=== PATIENT | male | born 1985 | race Caucasian/White ===

== ENCOUNTER 2017-12-25 10:46 | Inpatient (IN) | payer OTHER ==
[~2017-12-25] VITALS: Ht 180.3 cm; Wt 85.4 kg
--- NOTE | 2017-12-25 11:42 | ED PSYCHIATRIC COMPLAINT ---
History of Present Illness General Chief Complaint: Psychiatric Related Complaint Stated Complaint: +SI, "TOOK A BUNCH OF PILLS", ETOH Source: old records, EMS, ex Exam Limitations: unable to give history Vital Signs & Intake/Output Vital Signs & Intake/Output Vital Signs Date Time Temp Pulse Resp B/P B/P Pulse O2 O2 Flow FiO2 Mean Ox Delivery Rate 12/28 0715 96.8 68 18 122/60 97 Room Air 12/28 0200 97.6 52 18 138/90 97 Room Air 12/27 2205 98.4 55 18 128/78 97 12/27 2000 98.5 57 20 130/84 12/28 1999 98.5 57 20 130/84 97 Room Air 12/27 1600 50 16 130/80 12/27 1400 98.4 58 20 140/80 12/27 1400 98.0 59 20 160/80 98 12/27 1000 62 138/78 ED Intake and Output 12/28 0000 12/27 1200 Intake Total 1020 825 Output Total Balance 1020 825 Intake, IV 170 525 Intake, Oral 850 300 Number 2 Bowel Movements Patient 199 lb Weight Allergies Coded Allergies: NO KNOWN ALLERGIES (08/03/12) Reconcile Medications Baclofen 20 MG TABLET 1 TAB PO BID nerve apin (Reported) Buprenorphine HCl/Naloxone HCl (Suboxone 8 MG-2 MG Sl Film) 8 MG-2 MG FILM 3 STR SL DAILY MAINTENCE (Reported) Folic Acid 1 MG TABLET 1 TAB PO DAILY alcoholic Gabapentin (Neurontin) 800 MG TABLET 1 TAB PO Q6 anxiety (Reported) Lisdexamfetamine Dimesylate (Vyvanse) 60 MG CAPSULE 1 CAP PO QAM DEPRESSION ( Reported) Multiple Vitamin (Multivitamins) 1 EACH TABLET 1 TAB PO DAILY alcoholuic Omeprazole 40 MG CAPSULE.DR 1 CAP PO DAILY gerd Paroxetine HCl 30 MG TABLET 1 TAB PO DAILY DEPRESSION (Reported) Quetiapine Fumarate (Seroquel) 50 MG TABLET 1 TAB PO QPM insomnia (Reported) Thiamine HCl 100 MG TABLET 1 TAB PO DAILY alcoholic Triage Note: PT BROUGHT TO TRIAGE BY EX FOR OD ON SUBOXEN, LYRICA, UNKNOWN AMOUNT, TRIAZALAM, PT ALSO TOOK 8 SHOTS OF LIQUOR. PT WAS FOUND ON BR FLOOR AND HAD WRITTEN SORRY ON HIS LEGS Triage Nurses Notes Reviewed? yes HPI: Patient presents for evaluation of a possible overdose. Patient himself is at this point unable to provide history due to somnolence. I have obtained history from his ex- with whom he is currently staying. She states that the patient has been expressing suicide ideation recently. He was evaluated in the emergency department Saturday night. She states he has a court appearance today and could potentially face senior living time. Earlier this morning she found multiple medications of hers and his is missing. Apparently potentially taken unknown amounts of gabapentin Suboxone and benzodiazepines. Past History Travel History Traveled to [place] past 21 day No Medical History Any Pertinent Medical History? see below for history Psychiatric: anxiety, depression, SUICIDAL IDEATION ADHD Isolation History: Standard Surgical History Surgical History: non-contributory Psychosocial History Who do you live with Other (see notes) What is your primary language French Tobacco Use: Current Daily Use Daily Tobacco Use Amount/Type: => 5 Cigarettes daily ETOH Use: heavy use Illicit Drug Use: marijuana Family History Hx Contributory? No Review of Systems Review of Systems Constitutional: Reports: no symptoms. EENTM: Reports: no symptoms. Respiratory: Reports: no symptoms. Cardiovascular: Reports: no symptoms. GI: Reports: no symptoms. Genitourinary: Reports: no symptoms. Musculoskeletal: Reports: no symptoms. Skin: Reports: no symptoms. Neurological/Psychological: Reports: see HPI. Hematologic/Endocrine: Reports: no symptoms. Immunologic/Allergic: Reports: no symptoms. All Other Systems: Reviewed and Negative Physical Exam Physical Exam General Appearance: SEE BELOW Neurological/Psychiatric: SEE BELOW Comments: Gen.: Well-nourished, well-developed, no acute respiratory distress. Somnolent and difficult to arouse. Head: Normocephalic, atraumatic. Eyes: Normal inspection bilaterally Ears: Normal inspection bilaterally Nose: Normal inspection Throat/mouth : Moist mucosa Neck: Supple, full range of motion, no goiter Lungs: Quiet respirations Back: Normal range of motion Extremities: Normal range of motion grossly, no cyanosis clubbing or edema of the upper extremities Neurologic: Unable to assess Skin: warm and dry Psychiatric: Unable to assess SAD PERSONS Done? deferred to inpatient psychiatric eval Progress Differential Diagnosis: drug intoxication, drug overdose, Depression, suicidality, anxiety, bipolar disorder Plan of Care: Orders Procedure Date/time Status Regular Diet 12/27 D Active Continuous Observation Monitor 12/27 1129 Active SUB [facility] (35 MIN) 12/26 UNK Complete Current Medications Sig/Braulio Start time Last Medication Dose Stop Time Status Admin Quetiapine Fumarate 50 MG QPM 12/27 2100 CAN (SEROquel) Buprenorphine/ 1 TAB 0800 & 1300 12/27 1300 AC 12/28 Naloxone 0807 (Suboxone) Gabapentin 400 MG BID 12/27 0900 AC 12/28 (Neurontin) 0807 Sertraline HCl 100 MG DAILY 12/27 0900 AC 12/28 (Zoloft) 0807 Thiamine HCl 100 MG DAILY 12/27 0900 AC 12/28 (Vitamin B1) 0807 Omeprazole 40 MG DAILY AC 12/27 0756 AC 12/28 (Prilosec) 0600 Nicotine 21 MG DAILY 12/26 1545 AC 12/28 (Nicoderm) 0806 Folic Acid 1 MG DAILY 12/26 1342 AC 12/28 (Folic Acid) 0807 Multivitamins 1 TAB DAILY 12/26 1342 AC 12/28 (Theragran Vitamins) 0807 Enoxaparin Sodium 40 MG DAILY 12/26 0900 AC 12/28 (Lovenox) 0806 Lorazepam 0 Q1P PRN 12/25 1545 AC 12/28 (Ativan) 0936 Initial ED EKG: NSR, rate (78) Comments: 12/25/2017 12:03:16 PM after the Narcan dose, Glenn seems to be a bit more alert although not conversant yet. 12/25/2017 12:32:18 PM d/w poison control who recommends icu level care due potentially long effects of Suboxone. Otherwise the patient should be provided symptomatic and supportive care. 12/25/2017 1:13:40 PM patient's case discussed with Dr. Owens who will evaluate the patient shortly. It is not clear if the patient requires intubation for airway control or hypercarbia. 12/25/2017 1:28:18 PM I have updated patient's ex- who is at the bedside with Glenn. His pupils have increased in size likely the result of the Narcan administered. His respiratory effort remains adequate as well as his oxygen saturations. Although he does not respond to name calling as yet he is protecting his airway with a prompt gag reflex and teeth clamping. 12/25/2017 1:37:29 PM MOD notified. 12/25/2017 2:03:46 PM patient has been evaluated by Dr. Owens. Departure Departure Disposition: STILL A PATIENT Condition: Stable Clinical Impression Primary Impression: Medication overdose Referrals: Patient Has No Primary Care Dr (PCP/Family) Departure Forms: Customer Survey General Discharge Information Prescriptions: Current Visit Scripts Multiple Vitamin (Multivitamins) 1 TAB PO DAILY #30 TAB Thiamine HCl 1 TAB PO DAILY #30 TAB Folic Acid 1 TAB PO DAILY #30 TAB Omeprazole 1 CAP PO DAILY #30 CAP Admission Note Spoke With: Graciela IRAHETA,Darryl Saravia Documentation of Exam: Documentation of any treatments & extenuating circumstances including Concerns Regarding Discharge (functional status, medication knowledge or non-compliance, living conditions, etc.) that warrant an admission rather than observation: Patient presents after overdose likely secondary to Suboxone. Suboxone is a long acting narcotic agonist place this patient at high risk of respiratory depression respiratory failure and . This patient cannot be safely treated as an outpatient as he would be at very high risk of worsening clinically. Given this the patient requires hospitalization for close clinical monitoring of vital signs and continuous pulse oximetry. Hypoxia should be treated with oxygen supplementation and/or administration of Narcan to reverse the narcotic effect of the Suboxone. Patient should also have a crisis evaluation to determine any intentional intent behind the overdose and to address any psychiatric considerations. Oxygen supplementation should be weaned accordingly. I feel this patient will require a multiple day hospitalization. Critical Care Note Critical Care Note Critical Care Time: 30-74 min
[2017-12-25 12:04] LABS: ABSOLUTE BASOPHIL COUNT 0 /CUMM (0.0-0.2); ABSOLUTE EOSINOPHIL COUNT 0.3 /CUMM (0.0-0.7); ABSOLUTE GRANULOCYTE CT 1.4 /CUMM (1.4-6.5); ABSOLUTE LYMPH COUNT 2.8 /CUMM (1.2-3.4); ABSOLUTE MONOCYTE COUNT 0.3 /CUMM (0.10-0.60); BASOPHIL % 0.9 % (0.0-2.0); EOSINOPHIL % 5.4 % (0-5); GRANULOCYTE % 29.5 % (42.2-75.2); HEMATOCRIT 40.2 % (42-52); MEAN CORPUSCULAR HGB CONC 34.5 G/DL (33.0-37.0); MEAN CORPUSCULAR VOLUME 87.2 FL (80.0-94.0); MEAN PLATELET VOLUME 7.3 FL (7.4-10.4); PLATELET COUNT 229 /CUMM (130-400); RBC DISTRIBUTION WIDTH 13.7 % (11.5-14.5); RED BLOOD CELL CT 4.61 /CUMM (4.70-6.10); WHITE BLOOD CELL COUNT 4.8 /CUMM (4.8-10.8)
--- NOTE | 2017-12-25 13:50 | History & Physical ---
Damon IRAHETA,[facility] 12/25/17 1800: General Information and HPI MD Statement: I have seen and personally examined JAN MONTGOMERY and documented this H&P. The patient is a 32 year old M who presented with a patient stated chief complaint of polysibstance abuse. Exam Limitations: unable to give history History of Present Illness: 32-year-old gentleman with a history significant for prior IV drug abuse, untreated hepatitis C, alcohol abuse, is brought in to [place] ED by his after being found on the bathroom floor with multiple medications. Patient had written the words "sorry" on his legs and abdomen and reported to his ex- that he had taken "a bunch of" pills in addition to alcohol. Per ED records when patient presented he was found to be very lethargic and needed multiple staff members to transport him from wheelchair to stretcher. He was administered 0.8 mg of Narcan. When seen by the ICU team patient, he was more arousable and responded to verbal commands, but still appeared very sedated. Most of the history was obtained from his ex- was at bedside, she reports that the patient most likely took his Vyvanse, Suboxone, gabapentin, Lyrica(not prescribed for him, it is his ex- Rx). Review of system was very limited due to patient sedated state however he was able to state that he does not have any chest pain, palpitation, shortness of breath, or any generalized pain.. of note, patient had presented 3 days ago at [place] ED after being brought in by the police for an emergency examination after he was found inebriated at someone else's yard. Apparently, on that date he had texted to his ex- what appeared to be a suicide note. He was examined by psych and at that time, his risk for suicide did not meet the threshold of involuntary hospitalization. A phone call was placed to poison control by the ED physician for polysubstance overdose management recommendation. Poison control recommended symptomatic management and ICU placement for now. Regarding his social life, patient is and has 1 daughter who is 5 years old. He does live with his mom but for the past few days he has been staying with his ex-. He is facing most likely half-way time due to multiple offenses, he will schedule for court today. 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 Allergies/Medications Allergies: Coded Allergies: NO KNOWN ALLERGIES (08/03/12) Past History Travel History Traveled to [place] past 21 day No Medical History Psychiatric: anxiety, depression, SUICIDAL IDEATION ADHD Isolation History: Standard Surgical History Surgical History: non-contributory Past Family/Social History Psychosocial History ETOH Use: heavy use Illicit Drug Use: marijuana Review of Systems Review of Systems Constitutional: Reports: see HPI. Exam & Diagnostic Data Last 24 Hrs of Vital Signs/I&O Vital Signs Date Time Temp Pulse Resp B/P B/P Pulse O2 O2 Flow FiO2 Mean Ox Delivery Rate 12/25 1553 97.5 80 20 110/80 12/25 1553 97.5 80 20 110/80 95 Room Air 12/25 1419 89 18 134/63 96 Nasal 2.5L Cannula 12/25 1404 98.8 89 18 144/67 97 Nasal 2.5L Cannula 12/25 1349 92 18 147/69 98 Nasal 2.5L Cannula 12/25 1334 97.9 95 22 148/69 98 Nasal 2.5L Cannula 12/25 1309 96 20 152/69 95 Nasal 2.5L Cannula 12/25 1304 94 24 144/68 98 Nasal 2.5L Cannula 12/25 1249 91 22 145/70 98 Nasal 2.5L Cannula 12/25 1237 90 18 135/74 98 Nasal 2.5L Cannula 12/25 1128 99 Room Air Room Air 12/25 1105 97.8 86 12 130/70 96 Room Air 12/25 1055 98.0 85 20 116/70 Intake & Output 12/25 1600 12/25 0800 12/25 0000 Intake Total 1000 Output Total 600 Balance 400 Intake, IV 1000 Output, Urine 600 Patient 85.927 kg Weight Weight Bed scale Measurement Method Physical Exam General Appearance moderately sedated, lethargic Skin No Rashes, No Significant Lesion, green pen markigs in abdomen and legs stating "sorry" Skin Temp/Moisture Exam: Warm/Dry Sepsis Skin Exam (color): Normal for Ethnicity HEENT Atraumatic, Mucous Membr. moist/pink Neck Supple, No JVD Lymphatic Cervical nl Cardiovascular Regular Rate, Normal S1, Normal S2 Lungs Clear to Auscultation, Normal Air Movement Abdomen Normal Bowel Sounds, Soft Neurological Normal Speech, Strength at 5/5 X4 Ext, Sensation Intact, Cranial Nerves 3-12 NL, Reflexes 2+ Extremities No Clubbing, No Cyanosis, No Tenderness/Swelling Vascular Normal Pulses, Pulses Symmetrical Last 24 Hrs of Labs/Bala: Laboratory Tests 12/25/17 1246: pH 7.30 *L, pCO2 53 H, pO2 182 H, HCO3 25, ABG O2 Sat (Measured) 95.0 L, P-50 (Temp Corrected) N, Carboxyhemoglobin 3.1, O2 Concentration % 2.5L, Temperature 97.8, O2 Delivery Method N/C, Phlebotomy Draw Site LEFT RADIAL 12/25/17 1210: Urine Opiates Screen < 100, Methadone Screen < 40, Barbiturate Screen < 60, Ur Phencyclidine Scrn < 6.00, Amphetamines Screen 219, U Benzodiazepines Scrn 137, Urine Cocaine Screen < 50, Urine Cannabis Screen < 5.00, Urine Color YEL, Urine Clarity CLEAR, Urine pH 6.5, Ur Specific [place] <= 1.005, Urine Protein NEG, Urine Ketones NEG, Urine Nitrite NEG, Urine Bilirubin NEG, Urine Urobilinogen 0.2, Ur Leukocyte Esterase NEG, Ur Microscopic EXAM NOT REQUIRED, Urine Hemoglobin NEG, Urine Glucose NEG 12/25/17 1140: Anion Gap 15, Estimated GFR > 60, BUN/Creatinine Ratio 11.4, Glucose 113 H, Calcium 8.6, Phosphorus 2.7, Magnesium 2.0, Total Bilirubin 0.3, AST 32, ALT 43, Alkaline Phosphatase 65, Creatine Kinase 84, Troponin I < 0.01, Total Protein 6.9, Albumin 3.7, Globulin 3.2, Albumin/Globulin Ratio 1.2, CBC w Diff MAN DIFF ORDERED, RBC 4.61 L, MCV 87.2, MCH 30.0, MCHC 34.5, RDW 13.7, MPV 7.3 L, Gran % 29.5 L, Lymphocytes % 57.8 H, Monocytes % 6.4, Eosinophils % 5.4 H, Basophils % 0.9, Absolute Granulocytes 1.4, Segmented Neutrophils 28 L, Band Neutrophils 3, Absolute Lymphocytes 2.8, Lymphocytes 60 H, Monocytes 7, Absolute Monocytes 0.3, Eosinophils 1, Absolute Eosinophils 0.3, Basophils 1, Absolute Basophils 0, Platelet Estimate ADEQUATE, Salicylates < 1.0, Acetaminophen < 10.0 L, Serum Alcohol 420.0 Microbiology 07/11 1500 UPPER RESP: Surveillance Culture - RECD 12/25 1430 GI: Surveillance Culture - COLB Diagnostic Data EKG Results Normal sinus rythm Assessment/Plan Assessment: 32-year-old gentleman presenting to [place] ED after "suicidal attempt" by intentional polysubstance ingestion. Patient has multiple life stressors including a pending court hearing with hearing today with most likely half-way time. Impression * Suicidal attempt * Polysubstance intentional overdose (the exact medications and amount is unknown but based on ex- account likely included baclofen, triazolam, Vyvanse, Suboxone, gabapentin (?) and Lyrica(?). * Hypercarbia * EtOH abuse with an alcohol level of 400 on admission. * Hypokalemia * History of significant psychiatric illnesses including depression. * History of untreated hepatitis C. Plan * Admit to ICU for close monitoring including cardiac monitoring * One-to-one sitter * Symptomatic supportive management for his polysubstance drug ingestion ( Personally spoke to poison control center and they reccomended we continue our current regimen). * D5 at 75 mils per hour * Replenish potassium * IV Protonix for GI prophylaxis * CIWA monitoring * Patient does have a history of SSRI on his medication claim however this was not reported by ex- S1 of the medication he took today. Nevertheless we will monitor for any impending serotonin syndrome. Currently he does not show any clinical signs of this. * As needed symptom triggered lorazepam only * Will consider clonidine if patient shows any signs of opioid withdrawal * Psychiatric consult * CODE STATUS; full code * DVT prophylaxis;ALPS and enoxaparin As Ranked By This Provider Problem List: 1. Suicidal ideation 2. Alcohol intoxication delirium Core Measures/Misc (03/03) Acute Coronary Syndrome ACS Diagnosis: No Congestive Heart Failure Congestive Heart Failure Diagnosis No Cerebrovascular Accident CVA/TIA Diagnosis: No VTE (View Protocol) VTE Risk Factors Acute Medical Illness No Mechanical VTE Prophylaxis d/t N/A MechProphylax Ordered No VTE Pharm Prophylaxis d/t NA PharmProphylax ordered Sepsis (View protocol) Sepsis Present: No If YES complete Sepsis Event Note If YES complete Sepsis Event Note Graciela IRAHETA,[facility] 12/25/17 1426: Core Measures/Misc (03/03) Sepsis (View protocol) If YES complete Sepsis Event Note If YES complete Sepsis Event Note Attending MD Review Statement Attending Statement Attending MD Statement: examined this patient, discuss w/resident/PA/PADDING GLUER, agreed w/resident/PA/PADDING GLUER, discussed with family, reviewed EMR data (avail), discussed with nursing, discussed with case mgmt, reviewed images, amended to note Attending Assessment/Plan: Seen and examined independently in the emergency room Discussed with ex- SIGNIFICANT DATA potassium low anion gap normal LFTs unremarkable C BC showed 57 % lymphocytes prior to that it was 38% needs follow-up urine tox screen reviewed no significant This is a gentleman who presented with intentional overdose with suicide attempt. It does appear that he has had suicidal ideation recently per ex-. Patient apparently was facing half-way time as he had a court date today. He is drinking heavily recently with history of alcohol abuse, he has been taking gabapentin and Suboxone at home apparently has benzos at home as well. Tox screen noted. He does use marijuana. I'm not sure whether he uses intravenous drugs but his ex- does say that he does not use intravenous drugs. And examined him he had pinpoint pupil was less responsive pupils reacting otherwise chest decreased breath sounds he had tattoos heart S1-S2 is heard abdominal exam soft sounds were heard extremity no cyanosis clubbing patient had written 'sorry ' all over his body, moving all extremities full neurological exam could not be done IMPRESSION Intentional overdose with suicidal ideation with significant reduced mental status with mild hypercarbic state now maintaining his airway with O2 sat 91%. Patient still obtunded and lethargic however but opens eyes with mild painful stimulation Significant alcohol intoxication Polysubstance overdose probably benzo, gabapentin and Suboxone Significant depression or history Hypokalemia RECOMMENDATION Admitted to ICU Keep the head of bed elevated Maintenance IV fluids with D5 half-normal saline at 60 mL Mccallum catheter Watch for alcohol withdrawal As needed benzos if he needs it Intubation if he has any issues with his airway so far he seems to be maintaining his airway with a gag reflex and a bite reflex when I tried to evaluate his posterior pharynx Lovenox subcutaneous IV PPI One-to-one sitter Psychiatry evaluation and is more awake We will follow closely in the ICU Patient critically ill Junior Oconnor MD 12/25/17 7318: General Information and HPI Allergies/Medications Home Med list Baclofen 10 MG TABLET 1 TAB PO TID MUSLCE (Reported) Buprenorphine HCl/Naloxone HCl (Suboxone 8 MG-2 MG Sl Film) 8 MG-2 MG FILM 3 STR SL DAILY MAINTENCE (Reported) Gabapentin 400 MG CAPSULE 1 CAP PO TID MENTAL HEALTH (Reported) Lisdexamfetamine Dimesylate (Vyvanse) 60 MG CAPSULE 1 CAP PO QAM DEPRESSION ( Reported) Paroxetine HCl 30 MG TABLET 1 TAB PO DAILY DEPRESSION (Reported) Core Measures/Misc (03/03) Sepsis (View protocol) If YES complete Sepsis Event Note If YES complete Sepsis Event Note If YES complete Sepsis Event Note If YES complete Sepsis Event Note
[2017-12-25] MEDS ORDERED: SUBOXONE 8 MG-1 EACH SL (14:53)
[2017-12-25] MEDS ORDERED: VYVANSE60 M1 PO (14:53)
[2017-12-25] MEDS ORDERED: PAROXETINE HCL30 M1 PO (14:54)
[2017-12-25 15:53] VITALS: BP 110/80
[2017-12-25 20:00] VITALS: BP 120/70
[2017-12-25 22:00] VITALS: BP 110/88
[2017-12-26] VITALS (8 sets, daily range): BP systolic 119–149; BP diastolic 60–86
--- NOTE | 2017-12-26 08:34 | PN- Resident CRCU ---
Nithin Arteaga 12/26/17 0831: Subjective HPI/CRCU Issues: Mr. Garcia is a 32 y/o M that was brought to the ED by his ex- after finding him on the bathroom with multiple pills at his side. He was admitted to the ICU for close monitoring of possible multiple substance overdose. 24 Hour Events: Pt seen and examined at bedside. He is with a 1:1 sitter -- patient is oriented to place and self, not to time. He has no recollection of what transpired that brought him to the ED. Last thing he recalls is drinking a lot of alcohol "some days ago" with the intention of suicide, but can't remember more than "bits and pieces" of the rest. He states he "took a bunch of pills" but doesn't recall exactly what. He does mention there were benzos and suboxone on the shelf where he took them from. He was talkative and cooperative during questioning with no acute complaints. Objective Vital Signs & I&O Last 8 Hrs of Vitals and I&O: Intake & Output 12/26 1600 12/26 0800 12/26 0000 Intake Total 8412 780 6835 Output Total 650 1000 Balance 600 850 360 Intake, IV 550 600 Intake, Oral 1250 300 760 Output, Urine 650 1000 Laboratory Tests 12/25 2335 Chemistry Sodium (137 - 145 mmol/L) 145 Potassium (3.5 - 5.1 mmol/L) 4.0 Chloride (98 - 107 mmol/L) 108 H Carbon Dioxide (22 - 30 mmol/L) 25 Anion Gap (5 - 16) 12 BUN (9 - 20 mg/dL) 6 L Creatinine (0.7 - 1.2 mg/dL) 0.7 Estimated GFR (>60 ml/min) > 60 BUN/Creatinine Ratio (7 - 25 %) 8.6 Vital Signs Date Time Temp Pulse Resp B/P B/P Pulse O2 O2 Flow FiO2 Mean Ox Delivery Rate 12/26 1534 98.3 46 20 122/60 99 Room Air 12/26 1200 60 149/70 12/26 0800 Room Air 12/26 0800 98.0 56 16 138/86 12/26 0800 98.0 56 16 138/86 98 Room Air 12/26 0600 68 18 134/81 12/26 0400 98.7 84 18 140/80 12/26 0400 96 Room Air 12/26 0200 81 20 120/82 12/26 0000 99.0 76 16 119/65 12/26 0000 99.0 76 16 119/65 96 Room Air 12/26 0000 96 Room Air 12/25 2200 98.1 80 10 110/88 12/26 1999 98.1 80 20 120/70 Intake & Output 12/26 1600 Intake Total 1250 Output Total 650 Balance 600 Intake, Oral 1250 Output, Urine 650 Exam General Appearance: no apparent distress, alert, awake Head: atraumatic, normal appearance Neck: normal inspection, supple Respiratory: normal breath sounds, chest non-tender, no respiratory distress, lungs clear Cardiovascular: bradycardia Gastrointestinal: normal bowel sounds, soft, non-tender, no organomegaly Extremities: normal inspection, normal capillary refill Cranial Nerves: normal hearing, normal speech Skin: words "sorry" written on LE Current Medications: Current Medications Sig/Braulio Start time Last Medication Dose Route Stop Time Status Admin Buprenorphine/ 1 TAB Q6 PRN 12/26 1115 AC 12/26 Naloxone SL 1206 Dextrose/Sodium 1,000 ML Q13H 12/25 1545 12/26 Chloride IV 0358 Enoxaparin Sodium 40 MG DAILY 12/26 0900 AC 12/26 SC 0841 Folic Acid 1 MG DAILY 12/26 1342 AC 12/26 PO 1521 Lorazepam 0 Q1P PRN 12/25 1545 IV Multivitamins 1 TAB DAILY 12/26 1342 AC 12/26 PO 1521 Nicotine 21 MG DAILY 12/26 1545 AC 12/26 TOP 1646 Pantoprazole Sodium 40 MG DAILY 12/25 1815 AC 12/26 IV 0841 Thiamine HCl 100 MG DAILY 12/27 0900 PO Thiamine HCl 100 MG ONCE ONE 12/26 1345 MI 12/26 Sodium Chloride 50 ML IV 12/26 1444 1447 Trimethobenzamide HCl 200 MG ONCE ONE 12/26 0745 DC 12/26 IM 12/26 0746 0833 Impression/Plan Impression/Problem List Impression: Impression Polysubstance intentional overdose EtOH abuse Hypokalemia, resolved Hep C, untreated VS: T: 98.3 // RR: 20, 99% Sat 99% on Room air // HR: 60 // BP:122/60 Plan Respiratory Pt breathing comfortably on room air, sat 99%. No lung findings on physical examination - no other evidence of acute respiratory pathology. Infection Pt afebrile with Slightly low WBC. Pt has a history of IVDU but hasn't done any IV drugs for about two years as per patient. He has a history of hepatitis C, with unclear timeline on diagnosis; no treatment or followup since diagnosis. Cardiac Pt with episodes of asymptomatic bradycardia. Possibly related to ingestion of baclofen. No other cardiac findings indicative of acute pathology. He has a slightly increased QTC, medications that prolong QT interval should be avoided. -avoid qt prolonging drugs -monitor HR Metabolic Blood gas on admit was indicative of a respiratory acidosis and CO2 retention consistent with his lethargic state after overdose. Alimentary Pt is tolerating PO well. Neurological Pt was talkative, oriented to self and place but not to time. Recall memory intact, though has no recolection of past 3 days. Sensation and muscle strength is preserved. Pt shows some embarassement about the suicide attempt, and did not want to talk especifically about what happened. Pt on suboxone to prevent worsening of withdrawal. -Sitter 1:1 -Psych consulted -Suboxone 2mg q6 PRN -Lorazepam PRN -monitor CIWA CODE STATUS; full code DVT prophylaxis;ALPS and enoxaparin Problem List: 1. Suicidal ideation Pain Ratin Tomorrow's Labs & Rationales: . Plan DVT/Prophylaxis: mechanical, pharmacological Graciela IRAHETA,[facility] 12/26/17 0943: Attending MD Review Statement Attending Sign Off Attending Cosign Statement: I have: examined this patient, reviewed [facility] EMR data, personally reviewd images, discussd w/resident/PA/MANAGER LVN, discussed mgmt plan w/caleb, discussed mgmt plan w/CM, discussed mgmt plan w/pt, agreed w/resident/PA/MANAGER LVN, amended to note. Other Findings: Doing ok Lj episode noted EKG no heart block Mild qtc prolongation Mag is ok Plan Cont monitoring psych eval Ciwa Watch for withdrawal Ok to tele
--- NOTE | 2017-12-26 09:29 | Cons- Psychiatry ---
Psychiatric Consult Date of Consult: 12/25/17 (Dr Owens) Reason for Consult: Evaluate for intentionality of overdose, ?Suicide attempt History of Present Illness: 32-year-old white male with history of depression, anxiety, opiate use disorder on Suboxone with upcoming court hearing for assault on medical personnel at [facility]. Patient was found unresponsive yesterday morning by ex- on the day of his court hearing with empty pill bottles around him. Ex- called EMS, Narcan was given, patient became somewhat responsive but still somnolent. On arrival to ED patient had blood alcohol level of 0.400. Patient had the word "SORRY" written on his legs and abdomen in thick black marker. Patient has a past history of 15 detoxes or rehabs, no previous psych admissions, but patient was in [facility] ED on 12/22/2017 for texting a suicidal message of "goodbye," and "I can't do this anymore" while he was intoxicated on alcohol. Patient accidentally sent this to his [id number] when he meant to send to his father. [id number] and ex- became concerned and brought patient to the ED. Patient was evaluated by crisis social worker school and psychiatrist. Patient, family and psychiatry staff felt the patient was safe to return home once he sobered, with outpatient follow-up plan. Today however patient stated that he had an intentional ingestion of an unknown amount of pills that day that he did not disclose to family or treaters as a suicide attempt. Patient states that he was concerned that on court sentencing yesterday he would be sent to custodial or snf for an extended period of time which was the acute stressor prior to suicide attempt. Patient was reported to have taken an unknown amount of Suboxone, Lyrica, triazolam, gabapentin and liquor. Patient does not remember any of these events. Today, patient feels that this was "stupid" and that he is glad to be alive. Patient reports that he has "many many stresses building up." Patient reports that he is in effect homeless and only temporarily staying with his ex-, Lakisha, with whom he has a child (5-year-old girl in ex- custody). Patient reports that he's been sleeping erratically (2-10 hours a night), with increased guilt over his legal situation, energy level "up and down," with no change in appetite. Patient reports that he's been distractible sometimes starting a lot of projects and unable to finish them and quite talkative. Patient reports history of ADHD. Patient denies past pato, physical or sexual abuse, psychosis, PTSD. Patient stated that all meds taken were prescribed (although some were his ex-'s pills), denies use of illicit's in the past month. States he does not use marijuana or synthetic cannabinoids. Patient reports that he started using opiates when he had a broken leg at age 17, starting with Percocets, moving to OxyContin and then to heroin when he was 21 years old (snorting and IV). Patient states he started Suboxone 3 years ago and has not used heroin since then. Patient reports occasional benzo use, and has been prescribed that in the past. Patient reports he is currently taking Vyvanse 50 mg every morning for concentration, Suboxone 16 mg in the morning and 8 mg in the afternoon sublingual for methadone maintenance, gabapentin 800 mg 4 times a day for anxiety and nerve pain, baclofen 20 mg twice a day for nerve pain/spasm, Seroquel 50 mg at bedtime when necessary insomnia (states he takes this about once a week). Patient has taken Elavil in the past for leg pain but this was discontinued due to incarceration. Allergies: Coded Allergies: NO KNOWN ALLERGIES (08/03/12) Current Medications: Current Medications Sig/Braulio Start time Last Medication Dose Route Stop Time Status Admin Buprenorphine/ 1 TAB Q6 PRN 12/26 1115 AC 12/26 Naloxone SL 1206 Dextrose/Sodium 1,000 ML Q13H 12/25 1545 AC 12/26 Chloride IV 0358 Enoxaparin Sodium 40 MG DAILY 12/26 0900 AC 12/26 SC 0841 Folic Acid 1 MG DAILY 12/26 1342 AC 12/26 PO 1521 Lorazepam 0 Q1P PRN 12/25 1545 AC IV Multivitamins 1 TAB DAILY 12/26 1342 AC 12/26 PO 1521 Nicotine 21 MG DAILY 12/26 1545 AC TOP Pantoprazole Sodium 40 MG DAILY 12/25 1815 AC 12/26 IV 0841 Thiamine HCl 100 MG DAILY 12/27 0900 AC PO Thiamine HCl 100 MG ONCE ONE 12/26 1345 DC 12/26 Sodium Chloride 50 ML IV 12/26 1444 1447 Trimethobenzamide HCl 200 MG ONCE ONE 12/26 0745 DC 12/26 IM 12/26 0746 0818 Past History Past Medical History Neurological: sciatica EENT: NONE Cardiovascular: NONE Respiratory: NONE Gastrointestinal: NONE Hepatic: hepatitis C Renal: NONE Musculoskeletal: fracture (left lower leg, 17 yo), multiple lipomas Psychiatric: alcohol dependence, anxiety, depression, opioid dependence, SUICIDAL IDEATION ADHD ETOH, intentional overdose Endocrine: NONE Blood Disorders: NONE Cancer(s): NONE PMO BUSINESS ANALYST/Reproductive: NONE Past Surgical History Surgical History: left leg fracture Psychosocial History Strengths/Capabilities: supportive relationship with ex- and her family, connected to treatment Physical Limitations (Interventions): n/a Psychiatric Treatment History Psych Treatment Psychiatric Treatment Yes Outpatient Treatment Yes (Lisa King, therapist) Location of Treatment [place] Reason for Treatment Anger mgmt Dates of Treatment 2017 Diagnosis: Major Depressive disorder Intentional overdose Opiate Use disorder, on suboxone maintenance Alchohol Use disorder, severe Anxiety Disorder ADHD Risk Factors: access to lethal means, high anxiety/distress, history of suicide atmpts, SA/MH hospitalized, substance abuse, poor impulse control, male, limited support, poor treatment alliance, between treaters Substance Use/Abuse History Drug Use/Abuse Substances Used/Abused Yes Substance Used/Abused Alcohol First Use teens Last Used day of admission (12/25/2017) How much used/taken 10-20 shots per day How often daily For how long severe x 2 months Route of use oral Substance Abuse Treatment Substance Abuse Treatment Past Substance Abuse [place] Yes Inpatient Treatment No Outpatient Treatment Yes Location of Treatment [place] [facility] Reason for Treatment opiate use disorder [facility] [phone] Dates of Treatment last 3 years, current Response to Treatment continued suboxone use, avoiding other opiates per pt report Assessment/Plan Lab Results: Laboratory Tests 12/25/17 2335: Anion Gap 12, Estimated GFR > 60, BUN/Creatinine Ratio 8.6 12/25/17 1246: pH 7.30 *L, pCO2 53 H, pO2 182 H, HCO3 25, ABG O2 Sat (Measured) 95.0 L, P-50 (Temp Corrected) N, Carboxyhemoglobin 3.1, O2 Concentration % 2.5L, Temperature 97.8, O2 Delivery Method N/C, Phlebotomy Draw Site LEFT RADIAL 12/25/17 1210: Urine Opiates Screen < 100, Methadone Screen < 40, Barbiturate Screen < 60, Ur Phencyclidine Scrn < 6.00, Amphetamines Screen 219, U Benzodiazepines Scrn 137, Urine Cocaine Screen < 50, Urine Cannabis Screen < 5.00, Urine Color YEL, Urine Clarity CLEAR, Urine pH 6.5, Ur Specific Dutton <= 1.005, Urine Protein NEG, Urine Ketones NEG, Urine Nitrite NEG, Urine Bilirubin NEG, Urine Urobilinogen 0.2, Ur Leukocyte Esterase NEG, Ur Microscopic EXAM NOT REQUIRED, Urine Hemoglobin NEG, Urine Glucose NEG 12/25/17 1140: Anion Gap 15, Estimated GFR > 60, BUN/Creatinine Ratio 11.4, Glucose 113 H, Calcium 8.6, Phosphorus 2.7, Magnesium 2.0, Total Bilirubin 0.3, AST 32, ALT 43, Alkaline Phosphatase 65, Creatine Kinase 84, Troponin I < 0.01, Total Protein 6.9, Albumin 3.7, Globulin 3.2, Albumin/Globulin Ratio 1.2, CBC w Diff MAN DIFF ORDERED, RBC 4.61 L, MCV 87.2, MCH 30.0, MCHC 34.5, RDW 13.7, MPV 7.3 L, Gran % 29.5 L, Lymphocytes % 57.8 H, Monocytes % 6.4, Eosinophils % 5.4 H, Basophils % 0.9, Absolute Granulocytes 1.4, Segmented Neutrophils 28 L, Band Neutrophils 3, Absolute Lymphocytes 2.8, Lymphocytes 60 H, Monocytes 7, Absolute Monocytes 0.3, Eosinophils 1, Absolute Eosinophils 0.3, Basophils 1, Absolute Basophils 0, Platelet Estimate ADEQUATE, Hepatitis A IgM Ab NONREACTIVE , Hep Bs Antigen NONREACTIVE, Hep B Core IgM Ab Conf NONREACTIVE, Hepatitis C Antibody REACTIVE H, Salicylates < 1.0, Acetaminophen < 10.0 L, Serum Alcohol 420.0 Diffential Diagnosis: Major depressive disorder with intentional overdose, accidental overdose, other neuro etiology (head trauma, vascular) Impression: 32-year-old white male with history of depression, anxiety, opiate use disorder on Suboxone with upcoming court hearing for assault on medical personnel at [facility] presenting to ED after being found unresponsive by ex- surrounded by pill bottles on the day of his court hearing. Patient currently in ICU with improved cognition and mild opiate withdrawal, pending transfer to telemetry floor. Patient had heart rate excursion into the 40s briefly, likely due to vasovagal event. Patient's self-injurious behavior, substance use and stressors have been escalating and patient is at high risk of self-harm in the community and warrants inpatient psychiatric admission. Patient currently regrets the overdose and has no reported memory of the event, and currently denies SI/HI/AVH, but is in agreement with inpatient admission for maintenance of safety, psychiatric stabilization, pharmacologic management to include management of withdrawal, and aftercare planning. 1. Depression with intentional overdose -PEC written and placed in patient's chart, will require psychiatric admission once medically clear -continue 1:1 safety monitor, cannot leave AMA -Continue sertraline 100 mg at this time -restart gabapentin 400 mg bid on 12/27/2017 and uptitrate to home dose of 800 mg qid as tolerated, if pt stabilized -may restart seroquel 50 mg qhs insomia as tolerated, hold if QTc >475ms -Would restart medications cautiously and monitor lytes/transaminases 2. Alcohol withdrawal -CIWA/vital signs every 4 hours -Ativan 2 mg q4h for CIWA > 8, SBP >160, DBP > 100, HR >100, hold for sedation -start folate 100 mg daily, MVI daily, thiamine 100 mg IM now then 100 mg daily -encourage oral hydration -monitor and replete Mg as needed 3. Opiate use disorder on suboxone -[facility] [place] [phone] -would titrate suboxone to withdrawal sxs via COWS, suboxone 2 mg q6prn withdrawal, up to home dose of 16 mg am and 8 mg in afternoon. -please do not start suboxone until withdrawal sxs clearly present or withdrawal will be precipitated -zofran, loperamide, ibuprofen as needed for breakthough sxs -would cautiously restart baclofen 10 mg bid for leg pain as tolerated -SW please contact [facility] (Dr Tatum) for dc planning when needed 4. ADHD -would hold vyvance 60 mg qam at this time and restart only once fully medically cleared 5. Court Charges -pt has charges for assault of a medical personnel from [facility], please use caution -SW please contact [place] [facility] to advise of admission Please contact Psychiatry Consult Liaison (weekdays) or on-call Psychiatrist ( evenings/weekends) with questions.
[2017-12-27] VITALS (7 sets, daily range): BP systolic 128–160; BP diastolic 78–84
--- NOTE | 2017-12-27 07:00 | PN- Housestaff ---
Jose Melton 12/27/17 0659: Subjective Follow-up For: Bradycardia Polysubstance Abuse SI Subjective: Patient seen and examined at bedside this morning. Denied any new complaints. Would like to shower. Rates at 40s but patient denies chest pain, palpitations or shortness of breath. Will continue to monitor and have cardiology asses prior to CPS admission. Review of Systems Constitutional: Denies: see HPI. Objective Last 24 Hrs of Vital Signs/I&O Vital Signs Date Time Temp Pulse Resp B/P B/P Pulse O2 O2 Flow FiO2 Mean Ox Delivery Rate 12/27 1400 98.0 59 20 160/80 98 12/27 0800 97.7 60 16 140/80 12/27 0613 98.2 44 16 140/80 99 Room Air 12/27 0400 40 12/26 2201 98.3 48 15 136/70 98 12/26 1534 98.3 46 20 122/60 99 Room Air Intake & Output 12/27 1600 12/27 0800 12/27 0000 Intake Total 825 200 Output Total Balance 825 200 Intake, IV 525 Intake, Oral 300 200 Patient 201 lb Weight Physical Exam General Appearance: Alert, Oriented X3, Cooperative, No Acute Distress HEENT: Atraumatic, PERRLA, EOMI, Mucous Membr. moist/pink Neck: Supple, No JVD Cardiovascular: Regular Rate, Normal S1, Normal S2, No Murmurs Lungs: Clear to Auscultation, Normal Air Movement Abdomen: Normal Bowel Sounds, Soft, No Tenderness, No Hepatospenomegaly Neurological: Normal Speech, Strength at 5/5 X4 Ext, Normal Tone, Sensation Intact, Cranial Nerves 3-12 NL, Reflexes 2+ Extremities: No Clubbing, No Cyanosis, No Edema, Normal Pulses Vascular: Normal Pulses, Pulses Symmetrical Current Medications: Current Medications Sig/Braulio Start time Last Medication Dose Route Stop Time Status Admin Buprenorphine/ 1 TAB 0800 12/27 1600 AC Naloxone SL 12/27 1601 Buprenorphine/ 1 TAB 0800 & 1300 12/27 1300 AC 12/27 Naloxone SL 1129 Buprenorphine/ 1 TAB Q6 PRN 12/26 1115 DC 12/26 Naloxone SL 1206 Dextrose/Sodium 1,000 ML Q13H 12/25 1545 DC 12/27 Chloride IV 0619 Enoxaparin Sodium 40 MG DAILY 12/26 0900 AC 12/27 SC 0959 Folic Acid 1 MG DAILY 12/26 1342 AC 12/27 PO 0958 Gabapentin 400 MG BID 12/27 0900 AC 12/27 PO 0958 Lorazepam 1 MG ONE ONE 12/27 1500 DC PO 12/27 1501 Lorazepam 0 Q1P PRN 12/25 1545 AC IV Multivitamins 1 TAB DAILY 12/26 1342 AC 12/27 PO 0958 Nicotine 21 MG DAILY 12/26 1545 AC 12/27 TOP 0959 Omeprazole 40 MG DAILY AC 12/27 0756 AC 12/27 PO 0959 Pantoprazole Sodium 40 MG DAILY 12/25 1815 DC 12/26 IV 0841 Patient Medication 1 ED ONE ONE 12/27 1330 DC Teaching ED 12/27 1331 Quetiapine Fumarate 50 MG QPM 12/27 2100 CAN PO Sertraline HCl 100 MG DAILY 12/27 0900 AC 12/27 PO 0958 Thiamine HCl 100 MG DAILY 12/27 0900 AC 12/27 PO 0958 Assessment/Plan Assessment: A/P: Patient is a 32 year old male brought to the ED by his ex- after finding him on the bathroom with multiple pills at his bedside. Patient was originally admitted to the ICU for close monitoring of possible substance overdose. ( Alcohol, lyrica, suboxone). PMH includes anxiety, depression, suicidal ideation, IV drug abuse, untreated hepatitis C, alcohol abuse. Patient has episodes of asymptomatic bradyucardia possibly related to ingestion of baclofen. Will be seen by Dr. Monroe for asymptomatic bradycardia. Problem List: 1. Polysubstance Abuse 2. Asymptomatic Bradycardia 3. Suicidal Ideations PLAN: * ETOH level of 420; continue to monitor CIWA and [place] per CIWA * Continue sitter and plan discussed with psychiatry Dr. Mathew; will be admitted to inpatient psychiatry following cardiology consultation for asymptomatic bradyacardia rates in 40s * Patient cannot sign out AMA * Suboxone 8mg resumed; will continue home dose tomorrow if tolerating Code Status: Full Code DVT PPx: ALPS + Lovenox 40mg SC Diet: Regular Problem List: 1. Suicidal ideation 2. Alcohol intoxication delirium Pain Ratin Pain Location: Lower back Pain Goal: Pain 4 or less Pain Plan: As per pain pathway Tomorrow's Labs & Rationales: N/A DVT/Prophylaxis: pharmacological [place] 12/27/17 1247: Attending MD Review Statement Attending Statement Attending MD Statement: examined this patient, discuss w/resident/PA/MIRROR FABRICATION SUPERVISOR, agreed w/resident/PA/MIRROR FABRICATION SUPERVISOR, reviewed EMR data (avail), discussed with nursing, discussed with case mgmt Attending Assessment/Plan: etoh intoxication- pt was drinking rum and his etoh level was 420. cont to monitor on ciwa and ativan per ciwa. Suicidal attempt with drug overdose- cont the sitter and plan d/w psych. pt will be admitted to inpatient psych. Pt cannot sign out AMA Opiate abuse on suboxone. started back on 8mg bid suboxone, if tolerating will increase to home dose tomorrow. d/w pt the care plan.
--- NOTE | 2017-12-27 09:16 | Incdntl Nt Psy ---
Incidental Note Notation: Addendum to psychiatry reccs from 12/27/2017: Pt has developed bradycardia. Please hold baclofen and seroquel until HR normalizes, monitor ECG, lytes and bivalents and replete as needed. It is unclear the quantity and extent of his ingestion and may be delveloping a delayed reaction to overdose. Consider cardiology consult if warranted.
--- NOTE | 2017-12-27 11:09 | PN- Psychiatry ---
Assessment/Plan Impression: Impression: 32-year-old white male with history of depression, anxiety, opiate use disorder on Suboxone with upcoming court hearing for assault on medical personnel at [facility] presenting to ED after being found unresponsive by ex- surrounded by pill bottles on the day of his court hearing. Patient has been transferred to medical floor from ICU, appears more coherent today, fully oriented, but does appear to be in mild opiate and alcohol withdrawal. Patient on PEC due to potential lethality of overdose attempt, however in agreement with inpatient admission when medically cleared. Patient does feel as though alcohol withdrawal is just starting and has history of complicated withdrawal to include hallucinosis. Bradycardia appears to be resolved. Suggestion: -Continue one-to-one safety monitor, on PEC, cannot leave AMA, vs q4h -Change Suboxone to 8 mg at 6 AM and 1 PM, may titrate to 16 mg a.m. and 8 mg in afternoon (home dose) if breakthrough opiate withdrawal symptoms persist -zofran, loperamide, ibuprofen as needed for breakthough opiate withdrawal sxs -Ativan 2 mg q4h for CIWA > 8, SBP >160, DBP > 100, HR >100, hold for sedation -Continue sertraline, gabapentin, Seroquel (hold if QTc >475ms) -Monitor lytes, bivalents, transaminases, EKG -continue to hold adderall and baclofen -SW please contact [place] [facility] for collateral/dispo planning - please contact [place] and [employer] [place] courts (missed court dates in both town 12/25/2016) -Patient has been in behavioral control this admission, however be advised the patient has court charges for assault on medical personnel at outside hospital -please contact [facility]PS for psychiatric admission once medically cleared and bed available. Subjective Subjective: Patient interviewed in hospital room with safety monitor and sitter at bedside. Patient states he is feeling that Suboxone has completely worn off and is reporting symptoms of abdominal cramps, nausea, sweaty palms, tremor, restlessness overnight and mild numbness in hands and feet. Patient reports that alcohol withdrawal typically starts on day 4 for him. States typical withdrawal includes tremor, sweats, parathesia and "seeing spots" which may also include auditory hallucinations of voices. Last DTs was one week ago which included AVH. Patient states he has mild, fleeting SI today, denies HI/AVH/SIB. Patient advised he was placed on PEC, however states he is in agreement with inpatient admission once he is medically cleared and advised this may be as late as Saturday if he is doing well. Sumaya raised concern that the patient's regional medical director would like a release for his medical records to present to court. Patient advised to discuss legal release with tent worker. Patient denies any other concerns at this time. Treatment team discussed with fiction and nonfiction prose writer plan for withdrawal management. Team requested changing Suboxone to standing per hospital protocol. Stated bradycardia had resolved. Team aware patient is on PEC and may not leave AMA. Objective Last 24 Hrs of Vital Signs/I&O Vital Signs Date Time Temp Pulse Resp B/P B/P Pulse O2 O2 Flow FiO2 Mean Ox Delivery Rate 12/27 612 98.2 44 16 140/80 99 Room Air 12/27 0400 40 12/26 2201 98.3 48 15 136/70 98 12/26 1534 98.3 46 20 122/60 99 Room Air 12/26 1200 60 149/70 Intake & Output 12/27 1600 12/27 0800 12/27 0000 Intake Total 825 200 Output Total Balance 825 200 Intake, IV 525 Intake, Oral 300 200 Patient 201 lb Weight Current Medications Sig/Braulio Start time Last Medication Dose Route Stop Time Status Admin Buprenorphine/ 1 TAB 0800 & 1300 12/27 1300 AC Naloxone SL Buprenorphine/ 1 TAB Q6 PRN 12/26 1115 DC 12/26 Naloxone SL 1206 Dextrose/Sodium 1,000 ML Q13H 12/25 1545 DC 12/27 Chloride IV 0619 Enoxaparin Sodium 40 MG DAILY 12/26 0900 AC 12/27 SC 0959 Folic Acid 1 MG DAILY 12/26 1342 AC 12/27 PO 0958 Gabapentin 400 MG BID 12/27 0900 AC 12/27 PO 0958 Lorazepam 0 Q1P PRN 12/25 1545 AC IV Multivitamins 1 TAB DAILY 12/26 1342 AC 12/27 PO 0958 Nicotine 21 MG DAILY 12/26 1545 AC 12/27 TOP 0959 Omeprazole 40 MG DAILY AC 12/27 0756 AC 12/27 PO 0959 Pantoprazole Sodium 40 MG DAILY 12/25 1815 DC 12/26 IV 0841 Quetiapine Fumarate 50 MG QPM 12/27 2100 AC PO Sertraline HCl 100 MG DAILY 12/27 0900 AC 12/27 PO 0958 Thiamine HCl 100 MG DAILY 12/27 899 AC 12/27 PO 58 Thiamine HCl 100 MG ONCE ONE 12/26 1345 DC 12/26 Sodium Chloride 50 ML IV 12/26 1706 1447 GENERAL: Alert and oriented x3, good eye contact, in hospital bed with ex-fianc mildly diaphoretic, mild distress SPEECH: Moderate rate and volume, normal prosody, fluent MOTOR: Mild bilateral hand tremor, no stereotypy or other abnormal movements MOOD: "Doing alright " AFFECT: Appeared to be in mild withdrawal, generally calm and cooperative, mood congruent, mildly constricted range, non-labile, fairly well related THOUGHT PROCESS: Logical, linear and goal-directed THOUGHT CONTENT: Fleeting passive SI, denies HI/AVH/SIB, no apparent grandiosity, paranoia, delusions, obsessions, ruminations, but concerned about upcoming court hearings COGNITION: No apparent deficit in attention, memory or concentration JUDGMENT: Fair INSIGHT: Fair MOTOR: Mild bilateral hand tremor, no stereotypy or other abnormal movements MOOD: "Doing alright " AFFECT: Appeared to be in mild withdrawal, generally calm and cooperative, mood congruent, mildly constricted range, non-labile, fairly well related THOUGHT PROCESS: Logical, linear and goal-directed THOUGHT CONTENT: Fleeting passive SI, denies HI/AVH/SIB, no apparent grandiosity, paranoia, delusions, obsessions, ruminations, but concerned about upcoming court hearings COGNITION: No apparent deficit in attention, memory or concentration JUDGMENT: Fair INSIGHT: Fair
--- NOTE | 2017-12-27 12:15 | Discharge Summary ---
See Addendum Visit Information Visit Dates Admission Date: 12/25/17 Discharge Date: 12/31/2017 Hospital Course Course Attending Physician: Reinier IRAHETA,Lulu Sarvaia Primary Care Physician: Patient Has No Primary Care Dr Hospital Course: This is a 32-year-old gentleman with past medical history significant for anxiety, depression, suicidal ideation, IV drug abuse, untreated hepatitis C, alcohol abuse, opiate abuse on Suboxone was brought to the emergency room by his after being found on the bathroom floor from intentional polysubstance overdose with suicide attempt. He does appear that he has had suicidal ideation recently but ex-. A phone call was placed to poison control by the ED physician for polysubstance overdose management recommendation. Poison control recommended symptomatic management and ICU placement. Patient has been drinking heavily recently with history of alcohol abuse, has been taking gabapentin and Suboxone at home. He does use marijuana. she reports that the patient most likely took his Vyvanse, Suboxone, gabapentin, Lyrica(not prescribed for him, it is his ex- Rx). 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 Apparently, on that date he had texted to his ex- what appeared to be a suicide note. He was examined by psych and at that time, his risk for suicide did not meet the threshold of involuntary hospitalization. He was admitted to ICU after a suicide attempt by intentional polysubstance ingestion. Patient has multiple life stressors including a pending court hearing with most likely shelter time. ------ Vitals were within normal limits CBCs and BEP normal limits Impression * Suicidal attempt * Polysubstance intentional overdose (the exact medications and amount is unknown but based on ex- account likely included baclofen, triazolam, Vyvanse, Suboxone, gabapentin (?) and Lyrica(?). * Hypercarbia * EtOH abuse with an alcohol level of 400 on admission. * Hypokalemia * History of significant psychiatric illnesses including depression. * History of untreated hepatitis C. Suicide attempt Patient was admitted to ICU after suicide attempt by intentional polysubstance overdose most likely baclofen, Suboxone, gabapentin, Lyrica. Vitals were monitored closely every hour. Mental status was improved. He has one-to-one sitter. Symptomatic supportive management was provided after contacting poison control. He was given adequate amount of hydration. Electrolytes were repleted and received IV Protonix for GI prophylaxis. He was able to maintain his airways. Ethyl alcohol abuse with alcohol level 400 on admission Monitored on CIWA, maintained on IV Ativan as needed based on his course. Received multivitamin thiamine and folate. Hypokalemia Electrolytes were repleted and monitored closely given polysubstance abuse Depression Patient has history of depression with intentional overdose. He was seen by psychiatrist, recommended inpatient psychiatric admission once he is medically cleared. He has continuous one-to-one safety monitor. He cannot leave AMA, PEC was placed in the patient chart. * He usually takes sertraline 100 mg daily for depression which was continued. Anxiety He takes gabapentin 800 mg - 4 times daily at home. Patient was started on gabapentin 400 twice daily. Insomnia Usually takes Seroquel 50 mg at bedtime for insomnia, however it was held given bradycardia Nerve pain Patient takes baclofen 20 twice daily. However it was held given bradycardia and intentional overdose Opiate use disorder on Suboxone Medication was conformed. He takes Suboxone 16 mg in the a.m. and 8 mg in the afternoon. We restarted Suboxone after couple of days with starting dose 8 mg twice daily. He was given supportive management for breakthrough symptoms. ADHD-held his home dose Vyvanse 60 mg, restart only once fully cleared Full code DVT prophylaxis Lovenox subcu Regular diet Allergies: Coded Allergies: NO KNOWN ALLERGIES (08/03/12) Disposition Summary Disposition Principal Diagnosis: Polysubstance abuse Suicide attempt Alcohol abuse Hypokalemia Additional Diagnosis: Depression Attention deficit disorder Opiate dependence Anxiety Discharge Disposition: other general hospital Discharge Instructions General Discharge Information Code Status: Full Code Patient's Diet: As tolerated Patient's Activity: As tolerated Follow-Up Instructions/Appts: Follow-up with PCP in 1 week after discharge Follow-up with welder gun in 1 week after discharge Follow-up with psychiatrist in 1 week after discharge Medications at Discharge Discharge Medications: Stop taking the following medications: Gabapentin (Gabapentin) 400 MG CAPSULE ORAL THREE TIMES DAILY Qty = 240 Baclofen (Baclofen) 10 MG TABLET ORAL THREE TIMES DAILY Qty = 28 Continue taking these medications: Buprenorphine HCl/Naloxone HCl (Suboxone 8 MG-2 MG Sl Film) 8 MG-2 MG FILM 3 Strip SUBLINGUAL DAILY Qty = 21 Comments: Last Taken: 12/31/17 Time: 3:30 PM Lisdexamfetamine Dimesylate (Vyvanse) 60 MG CAPSULE 1 Capsule ORAL Every Morning Qty = 14 Comments: NOT GIVEN Paroxetine HCl (Paroxetine HCl) 30 MG TABLET 1 Tablet ORAL DAILY Qty = 30 Comments: NOT GIVEN Gabapentin (Neurontin) 800 MG TABLET 1 Tablet ORAL EVERY SIX HOURS Comments: Last Taken: 12/31/17 Time: 9:00 AM Quetiapine Fumarate (Seroquel) 50 MG TABLET 1 Tablet ORAL Every night Comments: NOT GIVEN Baclofen (Baclofen) 20 MG TABLET 1 Tablet ORAL TWICE DAILY Comments: NOT GIVEN Start taking the following new medications: Multiple Vitamin (Multivitamins) 1 EACH TABLET 1 Tablet ORAL DAILY Qty = 30 No Refills Comments: Last Taken: 12/31/17 Time: 9:00 AM Thiamine HCl (Thiamine HCl) 100 MG TABLET 1 Tablet ORAL DAILY Qty = 30 No Refills Comments: Last Taken: 12/31/17 Time: 9:00 AM Folic Acid (Folic Acid) 1 MG TABLET 1 Tablet ORAL DAILY Qty = 30 No Refills Comments: Last Taken: 12/31/17 Time: 9:00 AM Omeprazole (Omeprazole) 40 MG CAPSULE.DR 1 Capsule ORAL DAILY Qty = 30 No Refills Comments: Last Taken: 12/31/17 Time: 6:00 AM Lorazepam (Ativan) 2 MG TABLET 1 Tablet ORAL See Instructions Qty = 10 No Refills Instructions: 2mg q6 today, taper based on ciwa scores Comments: Last Taken: 12/31/17 Time: 12:30 PM Copies To: Con IRAHETA,Con Attending Review Statement Documenting Attending: Lulu Hills MD Other Findings: [place]
[2017-12-27] MEDS ORDERED: NEURONTIN800 M2 PO (12:16)
[2017-12-27] MEDS ORDERED: SEROQUEL50 M1 PO (12:17)
[2017-12-27] MEDS ORDERED: BACLOFEN20 M1 PO (12:18)
[2017-12-27] MEDS ORDERED: FOLIC ACID1 M1 PO (12:21)
[2017-12-27] MEDS ORDERED: OMEPRAZOLE40 M1 PO (12:21)
[2017-12-27] MEDS ORDERED: THIAMINE HCL100 M1 PO (12:21)
[2017-12-27] MEDS ORDERED: MULTIVITAMINS1 EAC9 PO (12:21)
--- NOTE | 2017-12-27 12:23 | Patient Discharge Instructions ---
Discharge Instructions General Discharge Information You were seen/treated for: Suicidal attempt Polysubstance intentional overdose (the exact medications and amount is unknown but based on ex- account likely included baclofen, triazolam, Vyvanse, Suboxone, gabapentin (?) and Lyrica(?). Hypercarbia EtOH abuse with an alcohol level of 400 on admission. Hypokalemia History of significant psychiatric illnesses including depression. Special Instructions: Follow-up PCP in 1 week after discharge Follow-up piercing artist in 1 week after discharge Follow-up with psychiatrist in 1 week after discharge pt was again instructed to get evaluated for his HCV and start treatment once he is discharged from [facility]. Acute Coronary Syndrome Inclusion Criteria At DC or during hospital stay patient has or had the following: ACS DIAGNOSIS No Discharge Core Measures Meds if any: Prescribed or Continued at Discharge Meds if any: NOT Prescribed or Continued at Discharge Congestive Heart Failure Inclusion Criteria At DC or during hospital stay patient has or had the following: CHF DIAGNOSIS No Discharge Core Measures Meds if any: Prescribed or Continued at Discharge Meds if any: NOT Prescribed or Continued at Discharge Cerebrovascular accident Inclusion Criteria At DC or during hospital stay patient has or had the following: CVA/TIA Diagnosis No Discharge Core Measures Meds if any: Prescribed or Continued at Discharge Meds if any: NOT Prescribed or Continued at Discharge Venous thromboembolism Inclusion Criteria VTE Diagnosis No VTE Type NONE VTE Confirmed by (Test) NONE Discharge Core Measures - Per Current guidelines, there needs to be overlap - treatment for the first 5 days of Warfarin therapy. - If discharged on Warfarin prior to 5 days of - overlap therapy, the patient will need to be - assessed for post discharge needs including - *Post discharge parental anticoagulation - *Warfarin and/or parental anticoagulation education - *Follow up date to check INR post discharge At least 5 days overlap therapy as Inpatient No Meds if any: Prescribed or Continued at Discharge Note: Overlap Therapy is Warfarin and Anticoagulant Meds if any: NOT Prescribed or Continued at Discharge
--- NOTE | 2017-12-27 16:23 | Cons- Cardiology ---
General Information and HPI Consulting Request Date of Consult: 12/27/17 Requested By: Lulu Hills MD Reason for Consult: Bradycardia. Source of Information: patient, old records Exam Limitations: poor historian History of Present Illness: Mr. Glenn Garcia is a 32-year-old male with a history of untreated hepatitis C, alcohol abuse, prior IV drug abuse, and suicidal ideation who presented to the ED on 12/25/2017 with suicidal ideation and polysubstance overdose including, but not limited to, Vyvanse, Suboxone, Lyrica, Neurontin, Gablofen, and ethanol who we are asked to evaluate and help manage in regard to bradycardia. According to nursing, his heart rate went as low as 36 bpm overnight while asleep and has been in the 50s-60s bpm range today while he was awake. Allergies/Medications Allergies: Coded Allergies: NO KNOWN ALLERGIES (08/03/12) Home Med List: Baclofen 20 MG TABLET 1 TAB PO BID nerve apin (Reported) Buprenorphine HCl/Naloxone HCl (Suboxone 8 MG-2 MG Sl Film) 8 MG-2 MG FILM 3 STR SL DAILY MAINTENCE (Reported) Folic Acid 1 MG TABLET 1 TAB PO DAILY alcoholic Gabapentin (Neurontin) 800 MG TABLET 1 TAB PO Q6 anxiety (Reported) Lisdexamfetamine Dimesylate (Vyvanse) 60 MG CAPSULE 1 CAP PO QAM DEPRESSION ( Reported) Multiple Vitamin (Multivitamins) 1 EACH TABLET 1 TAB PO DAILY alcoholuic Omeprazole 40 MG CAPSULE.DR 1 CAP PO DAILY gerd Paroxetine HCl 30 MG TABLET 1 TAB PO DAILY DEPRESSION (Reported) Quetiapine Fumarate (Seroquel) 50 MG TABLET 1 TAB PO QPM insomnia (Reported) Thiamine HCl 100 MG TABLET 1 TAB PO DAILY alcoholic Review of Systems Review of Systems: A 14 point system review was obtained and was noncontributory, other than as above. Past History Travel History Traveled to [place] past 21 day No Medical History Blood Transfusion Hx: No Neurological: sciatica EENT: NONE Cardiovascular: NONE Respiratory: NONE Gastrointestinal: NONE Hepatic: hepatitis C Renal: NONE Musculoskeletal: fracture (left lower leg, 17 yo), multiple lipomas Psychiatric: alcohol dependence, anxiety, depression, opioid dependence, SUICIDAL IDEATION ADHD ETOH intentional overdose Endocrine: NONE Blood Disorders: NONE Cancer(s): NONE MECHANICAL SERVICE SPECIALIST/Reproductive: NONE Surgical History Surgical History: left leg fracture Psychosocial History Where Do You Live? Home Smoking Status: Current Some Day Smoker ETOH Use: heavy use Illicit Drug Use: marijuana Assessment/Plan Assessment/Plan 32-y-o-w-m w/ hx untreated hepatitis C, ethanol abuse, prior IV drug abuse, & suicidal ideation who presented to the ED on 12/25/2017 w/ suicidal ideation & polysubstance OD including, but not limited to, the INSULATION WORKER INTERIOR SURFACE stimulating agent Vyvanse (lisdexamfetamine), the opioid Suboxone (buprenorphine), the SPENCER analog /anticonvulsant Lyrica (pregabalin), another SPENCER analog/anticonvulsant Neurontin (gabapentin), the skeletal muscle relaxant Gablofen (baclofen) & ethanol who we are asked to evaluate and help manage in regard to bradycardia. Of the above listed medications, the Neurontin (gabapentin), which he is still on, and Gablofen (baclofen) have been reported to cause bradycardia. Of the other medications he is presently on, the SSRI Zoloft (sertraline), benzodiazepine Ativan (lorazepam), and PPI Prilosec (omeprazole) have all been reported to cause bradycardia in <1% of individuals on these agents. Additionally, it was mentioned in the resident's H&P that if signs of opioid withdrawal were observed they would consider the use of the alpha-2 adrenergic agonist Catapres (clonidine), but would avoid this as this too can cause bradycardia in less than or equal to 4% of individuals on this agent. The heart rates that were reported by nursing (HR 50s-60s bpm range) do not require any intervention at this time. If symptomatic bradycardia is observed would review his medications and eliminate those that can be replaced with other agents that can treat the same issues and do not have the potential for bradycardia. Consult Acknowledgment - Thank you for your consult request.
[2017-12-28 02:00] VITALS: BP 138/90
[2017-12-28 07:15] VITALS: BP 122/60
--- NOTE | 2017-12-28 09:04 | PN- Housestaff ---
Patricia Goldman 12/28/17 0904: Subjective Follow-up For: Bradycardia, polysubstance abuse, suicidal ideation. Complaints: no complaints Tele-Events Since Last Visit: Sinus bradycardia. Heart rate 44-53. Subjective: No complaints/no acute event overnight Review of Systems Constitutional: Reports: see HPI. Objective Last 24 Hrs of Vital Signs/I&O Vital Signs Date Time Temp Pulse Resp B/P B/P Pulse O2 O2 Flow FiO2 Mean Ox Delivery Rate 12/28 2245 97.8 52 18 146/90 98 Room Air 12/28 2000 72 160/110 12/28 1832 98.3 64 17 130/66 98 12/28 1428 98.3 55 18 130/84 97 Room Air 12/28 0715 96.8 68 18 122/60 97 Room Air 12/28 0200 97.6 52 18 138/90 97 Room Air Intake & Output 12/28 1600 12/28 0800 12/28 0000 Intake Total 10 120 Output Total Balance 10 120 Intake, IV 20 Intake, Oral 10 100 Patient 199 lb Weight Physical Exam General Appearance: Alert, Oriented X3, Cooperative, No Acute Distress Skin Temp/Moisture Exam: Cool/Dry HEENT: Atraumatic Cardiovascular: Regular Rate, Normal S1, Normal S2, No Murmurs Lungs: Clear to Auscultation, Normal Air Movement Abdomen: Normal Bowel Sounds, Soft, No Tenderness Neurological: Normal Speech, Strength at 5/5 X4 Ext, Normal Tone Extremities: No Clubbing, No Cyanosis, No Edema, Normal Pulses Vascular: Normal Pulses, Pulses Symmetrical Assessment/Plan Assessment: A/P: Patient is a 32 year old male brought to the ED by his ex- after finding him on the bathroom with multiple pills at his bedside. Patient was originally admitted to the ICU for close monitoring of possible substance overdose. ( Alcohol, lyrica, suboxone). PMH includes anxiety, depression, suicidal ideation, IV drug abuse, untreated hepatitis C, alcohol abuse. Patient has episodes of asymptomatic bradyucardia possibly related to ingestion of baclofen. Problem List: 1. Polysubstance Abuse 2. Asymptomatic Bradycardia 3. Suicidal Ideations PLAN: * Patient cannot sign out AMA * Pt awating bed availability at [facility] * Increase suboxone to home dose of 16mg in am and 8mg in afternoon starting tomorrow. * cont to monitor ciwa and ativan per ciwa. * will switch ativan to po tomorrow am. * Code Status: Full Code * DVT PPx: ALPS + Lovenox 40mg SC * Diet: Regular Problem List: 1. Suicidal ideation 2. Alcohol intoxication delirium 3. Medication overdose Pain Ratin Pain Location: none Pain Goal: Pain 4 or less Pain Plan: follow pain pathway Tomorrow's Labs & Rationales: not needed Lulu Hills 12/28/17 1659: Attending MD Review Statement Attending Statement Attending MD Statement: examined this patient, discuss w/resident/PA/GUEST SERVICES OFFICER, agreed w/resident/PA/GUEST SERVICES OFFICER, discussed with family, reviewed EMR data (avail), discussed with nursing, discussed with case mgmt Attending Assessment/Plan: Pt awating bed availability at [facility] . Increase suboxone to home dose of 16mg in am and 8mg in afternoon starting tomorrow. d/w pt the care plan. cont to monitor ciwa and ativan per ciwa. will switch ativan to po tomorrow am.
[2017-12-28 14:28] VITALS: BP 130/84
--- NOTE | 2017-12-28 14:45 | PN- Cardiology ---
Objective Vital Signs and I&Os Vital Signs Date Time Temp Pulse Resp B/P B/P Pulse O2 O2 Flow FiO2 Mean Ox Delivery Rate 12/28 1428 98.3 55 18 130/84 97 Room Air 12/28 0715 96.8 68 18 122/60 97 Room Air 12/28 0200 97.6 52 18 138/90 97 Room Air 12/27 2205 98.4 55 18 128/78 97 12/28 1999 98.5 57 20 130/84 12/28 1999 98.5 57 20 130/84 97 Room Air 12/27 1600 50 16 130/80 Intake & Output 12/28 1600 12/28 0800 12/28 0000 12/27 1600 12/27 0800 12/27 0000 Intake Total 10 120 900 825 200 Output Total Balance 10 120 900 825 200 Intake, IV 20 150 525 Intake, Oral 10 100 750 300 200 Number 2 Bowel Movements Patient 199 lb 201 lb Weight Current Medications: Current Medications Sig/Braulio Start time Last Medication Dose Route Stop Time Status Admin Buprenorphine/ 1 TAB 0800 12/27 1600 DC 12/27 Naloxone SL 12/27 1601 1547 Buprenorphine/ 1 TAB 0800 & 1300 12/27 1300 AC 12/28 Naloxone SL 1220 Enoxaparin Sodium 40 MG DAILY 12/26 0900 AC 12/28 SC 0806 Folic Acid 1 MG DAILY 12/26 1342 AC 12/28 PO 0807 Gabapentin 400 MG BID 12/27 0900 AC 12/28 PO 0807 Lorazepam 1 MG ONE ONE 12/27 1500 DC 12/27 PO 12/27 1501 1546 Lorazepam 0 Q1P PRN 12/25 1545 AC 12/28 IV 1410 Multivitamins 1 TAB DAILY 12/26 1342 AC 12/28 PO 0807 Nicotine 21 MG DAILY 12/26 1545 AC 12/28 TOP 0806 Omeprazole 40 MG DAILY AC 12/27 0756 AC 12/28 PO 0600 Sertraline HCl 100 MG DAILY 12/27 0900 AC 12/28 PO 0807 Thiamine HCl 100 MG DAILY 12/27 0900 AC 12/28 PO 0807 Assessment/Plan Assessment/Plan Assessment: 1. Asymptomatic sinus bradycardia 2. History of hepatitis C 3. History of polysubstance abuse 4. Suicidal ideation Recommendations: -
[2017-12-28 18:32] VITALS: BP 130/66
[2017-12-28 20:00] VITALS: BP 160/110
[2017-12-28 22:45] VITALS: BP 146/90
[2017-12-29] VITALS (8 sets, daily range): BP systolic 118–160; BP diastolic 76–102
--- NOTE | 2017-12-29 08:26 | PN- Housestaff ---
Jose Melton 12/29/17 0826: Subjective Follow-up For: Bradycardioa Polysubstance Abuse Suicidal Ideation Tele-Events Since Last Visit: SB, 49, 0.08, 0.14 Subjective: Patient seen and examined at bedside this morning. He has a complaint of nausea. Patient vomited X 2 today. Was given Tigan with significant improvement. Vomiting included nonbilious, nonbloody clear vomit. Patient states he is eating and drinking well. He denies any chest pain, tightness, palpitations or shortness of breath. 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 Review of Systems Constitutional: Denies: see HPI. Objective Last 24 Hrs of Vital Signs/I&O Vital Signs Date Time Temp Pulse Resp B/P B/P Pulse O2 O2 Flow FiO2 Mean Ox Delivery Rate 12/29 0743 98.3 52 18 118/76 98 Room Air 12/29 0600 52 118/76 12/28 2245 97.8 52 18 146/90 98 Room Air 12/28 2000 72 160/110 12/28 1832 98.3 64 17 130/66 98 Intake & Output 12/29 1600 12/29 0800 12/29 0000 Intake Total 220 220 Output Total Balance 220 220 Intake, Oral 220 220 Patient 188 lb Weight Weight Bed scale Measurement Method Physical Exam General Appearance: Alert, Oriented X3, Cooperative HEENT: Atraumatic, PERRLA, EOMI, Mucous Membr. moist/pink Neck: Supple, No JVD, No thryomegaly Cardiovascular: Normal S1, Normal S2, bradycardia Lungs: Clear to Auscultation, Normal Air Movement Abdomen: Normal Bowel Sounds, Soft, No Tenderness Neurological: Normal Gait, Normal Speech, Strength at 5/5 X4 Ext, Normal Tone, Sensation Intact, Reflexes 2+ Extremities: No Clubbing, No Cyanosis, No Edema Vascular: Normal Pulses, Pulses Symmetrical Current Medications: Current Medications Sig/Braulio Start time Last Medication Dose Route Stop Time Status Admin Buprenorphine/ 1 TAB 0800 & 1300 12/27 1300 AC 12/29 Naloxone SL 1307 Enoxaparin Sodium 40 MG DAILY 12/26 0900 AC 12/29 SC 0907 Folic Acid 1 MG DAILY 12/26 1342 AC 12/29 PO 0908 Gabapentin 400 MG BID 12/27 0900 AC 12/29 PO 0909 Lorazepam 0 Q1P PRN 07/11 1545 AC 12/29 IV 1310 Multivitamins 1 TAB DAILY 12/26 1342 AC 12/29 PO 0908 Nicotine 21 MG DAILY 12/26 1545 AC 12/29 TOP 0906 Omeprazole 40 MG DAILY AC 12/27 0756 AC 12/29 PO 0715 Sertraline HCl 100 MG DAILY 12/27 0900 AC 12/29 PO 0908 Thiamine HCl 100 MG DAILY 12/27 0900 AC 12/29 PO 0908 Trimethobenzamide HCl 200 MG ONCE ONE 12/29 1315 DC 12/29 IM 12/29 1316 1315 Orders CIWA Score (last 24 hrs): 10 Assessment/Plan Assessment: A/P: Patient is a 32 year old male brought to the ED by his ex- after finding him on the bathroom with multiple pills at his bedside. Patient was originally admitted to the ICU for close monitoring of possible substance overdose. ( Alcohol, lyrica, suboxone). PMH includes anxiety, depression, suicidal ideation, IV drug abuse, untreated hepatitis C, alcohol abuse. Patient has episodes of asymptomatic bradyucardia possibly related to ingestion of baclofen. Problem List: 1. Polysubstance Abuse 2. Asymptomatic Bradycardia 3. Suicidal Ideations PLAN: * Patient cannot sign out AMA * Awaiting bed availability at [facility] * No longer on telemtery monitoring as per cardiology; seen by Dr. Brian * Continue to monitor CI[facility] and [facility] as [facility] CIWA * Continue patients home medications and home dose of suboxone * Monitor intake; nausea and 2 episodes of vomiting today; given Tigan X1 and resolved; avoid Zofran for now given previous prolonged QTc * Patient to follow up outpatient for positive Hep C serology Code Status: Full Code DVT PPx: Lovenox 40mg SC Diet: Regular Problem List: 1. Medication overdose 2. Alcohol intoxication delirium 3. Suicidal ideation Pain Ratin Pain Location: Patient denied any signfiicant pain today Pain Goal: Remain pain free Pain Plan: As per pain pathway Tomorrow's Labs & Rationales: N/A DVT/Prophylaxis: pharmacological Lulu Hills 12/29/17 1642: Attending MD Review Statement Attending Statement Attending MD Statement: examined this patient, discuss w/resident/PA/BEHAVIOR INTERVENTIONIST, agreed w/resident/PA/BEHAVIOR INTERVENTIONIST, reviewed EMR data (avail), discussed with nursing, discussed with case mgmt Attending Assessment/Plan: Hep c ab positive- dw/ pt the findings. Pt says he knows about HCV postivity for years and few years back when he was incarcerated he spoke with the doctor there about treatment but once he got out never followed up with any doctor about it. will need to setup pt with a pcp and also with GI clinic for HCV treatment options.
--- NOTE | 2017-12-29 15:07 | PN- Cardiology ---
Subjective Subjective: The patient appears to be doing well today. No significant bradycardia noted on gambling monitor. Remains in sinus rhythm with adequate heart rate Objective Vital Signs and I&Os Vital Signs Date Time Temp Pulse Resp B/P B/P Pulse O2 O2 Flow FiO2 Mean Ox Delivery Rate 12/29 0743 98.3 52 18 118/76 98 Room Air 12/29 0600 52 118/76 12/28 2245 97.8 52 18 146/90 98 Room Air 12/28 2000 72 160/110 12/28 1832 98.3 64 17 130/66 98 Intake & Output 12/29 1600 12/29 0812/29 0000 12/28 1600 12/28 0800 12/28 0000 Intake Total 220 220 10 120 Output Total Balance 220 220 10 120 Intake, IV 20 Intake, Oral 220 220 10 100 Patient 188 lb 199 lb Weight Weight Bed scale Measurement Method Current Medications: Current Medications Sig/Braulio Start time Last Medication Dose Route Stop Time Status Admin Buprenorphine/ 1 TAB 0800 & 1300 12/27 1300 AC 12/29 Naloxone SL 1307 Enoxaparin Sodium 40 MG DAILY 12/26 0900 AC 12/29 SC 0907 Folic Acid 1 MG DAILY 12/26 1342 AC 12/29 PO 0908 Gabapentin 400 MG BID 12/27 09 AC 12/29 PO 0909 Lorazepam 0 Q1P PRN 12/25 1545 AC 12/29 IV 1310 Multivitamins 1 TAB DAILY 12/26 1342 AC 12/29 PO 0908 Nicotine 21 MG DAILY 12/26 1545 AC 12/29 TOP 0906 Omeprazole 40 MG DAILY AC 12/27 0756 AC 12/29 PO 0715 Sertraline HCl 100 MG DAILY 12/27 0900 AC 12/29 PO 0908 Thiamine HCl 100 MG DAILY 12/27 0900 AC 12/29 PO 0908 Trimethobenzamide HCl 200 MG ONCE ONE 12/29 1315 DC 12/29 IM 12/29 1316 1315 Assessment/Plan Assessment/Plan Assessment: 1. Asymptomatic sinus bradycardia 2. History of hepatitis C 3. History of polysubstance abuse 4. Suicidal ideation Recommendations: -At the moment, the patient has not had any evidence of any significant arrhythmias. He remains in sinus rhythm with a heart rate ranging from 55-80. -At the present time I believe the patient is stable to come off of the gambling monitor. -Otherwise continue as per the medical team Continue telemetry? No
[2017-12-30] VITALS (15 sets, daily range): BP systolic 106–176; BP diastolic 60–110
--- NOTE | 2017-12-30 07:01 | PN- Housestaff ---
Jose Melton 12/30/17 0701: Subjective Follow-up For: Polysubstance Abuse Suicidal Ideation Ethanol Withdrawal Tele-Events Since Last Visit: Off Tele Subjective: Patient seen and examined at bedside this morning. Has had episodes of nonbilious, nonbloody vomiting since yesterday. Increasing patients suboxone dose to home dose. Denies any acute symptoms today. Review of Systems Constitutional: Denies: see HPI. Objective Last 24 Hrs of Vital Signs/I&O Vital Signs Date Time Temp Pulse Resp B/P B/P Pulse O2 O2 Flow FiO2 Mean Ox Delivery Rate 12/30 0644 98.1 74 16 158/90 12/30 0608 98.2 101 20 158/90 98 Room Air 12/30 0430 98.2 64 18 158/80 12/30 0308 97.9 67 18 112/60 12/30 0222 97.9 64 22 106/76 12/30 0159 97.9 57 22 106/76 98 Room Air 12/29 2326 98.2 96 20 160/102 98 Room Air 12/29 2240 98.2 64 16 138/84 12/29 2133 98.2 106 18 160/102 12/29 2030 98.5 86 18 148/90 12/29 1800 98.1 89 20 140/80 98 Room Air 12/29 1506 97.9 78 18 152/90 97 Intake & Output 12/30 1600 12/30 0800 12/30 0000 Intake Total 400 280 Output Total Balance 400 280 Intake, Oral 400 280 Physical Exam General Appearance: Alert, Oriented X3, Cooperative HEENT: PERRLA, EOMI, Mucous Membr. moist/pink Cardiovascular: Normal S1, Normal S2, bradycardia Lungs: Clear to Auscultation, Normal Air Movement Abdomen: Normal Bowel Sounds, Soft, No Tenderness Neurological: Normal Speech, Strength at 5/5 X4 Ext Extremities: No Clubbing, No Cyanosis, No Edema Vascular: Normal Pulses, Pulses Symmetrical Current Medications: Current Medications Sig/Braulio Start time Last Medication Dose Route Stop Time Status Admin Buprenorphine/ 2 TAB 8AM 12/31 0800 AC Naloxone SL Buprenorphine/ 1 TAB 1500 12/30 1500 AC Naloxone SL Buprenorphine/ 2 TAB ONCE ONE 12/30 1115 DC 12/30 Naloxone SL 12/30 1116 1106 Buprenorphine/ 1 TAB 0800 & 1300 12/27 1300 DC 07/16 Naloxone SL 1035 Enoxaparin Sodium 40 MG DAILY 12/26 0900 AC 12/30 SC 1015 Folic Acid 1 MG DAILY 12/26 1342 AC 12/30 PO 1014 Gabapentin 400 MG BID 12/27 0900 AC 12/30 PO 1015 Lorazepam 1.5 MG Q6 12/30 1200 AC 12/30 PO 1124 Lorazepam 0 Q1P PRN 12/25 1545 DC 12/30 IV 1350 Multivitamins 1 TAB DAILY 12/26 1342 AC 12/30 PO 1015 Nicotine 21 MG DAILY 12/26 1545 AC 12/30 TOP 1015 Omeprazole 40 MG DAILY AC 12/27 0756 AC 12/30 PO 0657 Sertraline HCl 100 MG DAILY 12/27 0900 AC 12/30 PO 1015 Thiamine HCl 100 MG DAILY 12/27 0900 AC 12/30 PO 1015 Orders CIWA Score (last 24 hrs): 8, 8, 10 Assessment/Plan Assessment: Patient is a 32 year old male brought to the ED by his ex- after finding him on the bathroom with multiple pills at his bedside. Patient was originally admitted to the ICU for close monitoring of possible substance overdose. ( Alcohol, lyrica, suboxone). PMH includes anxiety, depression, suicidal ideation, IV drug abuse, untreated hepatitis C, alcohol abuse. Patient has episodes of asymptomatic bradyucardia possibly related to ingestion of baclofen. Problem List: 1. Polysubstance Abuse 2. Asymptomatic Bradycardia 3. Suicidal Ideations PLAN: * Patient cannot sign out AMA * Awaiting bed availability at [facility] * No longer on telemtery monitoring as per cardiology; seen by Dr. Brian * Continue to monitor CIWA and [place] as per CIWA; was high today; started on PO ativan * Continue patients home medications and home dose of suboxone * Monitor intake; nausea and 2 episodes of vomiting today; given Tigan X1 and resolved; avoid Zofran for now given previous prolonged QTc * Patient to follow up outpatient for positive Hep C serology Code Status: Full Code DVT PPx: Lovenox 40mg SC Diet: Regular Problem List: 1. Alcohol intoxication delirium 2. Medication overdose 3. Suicidal ideation Pain Ratin Pain Location: Denies pain today Pain Goal: Remain pain free Pain Plan: As per pain pathway Tomorrow's Labs & Rationales: none needed DVT/Prophylaxis: mechanical, pharmacological [place] 07/16/18 1358: Attending MD Review Statement Attending Statement Attending MD Statement: examined this patient, discuss w/resident/PA/COFFEE PLANTATION WORKER, agreed w/resident/PA/COFFEE PLANTATION WORKER, reviewed EMR data (avail), discussed with nursing, discussed with case mgmt Attending Assessment/Plan: etoh withdrawl- ciwa was high to day. Pt started on po ativan scheduled and plan is to transfer him to [facility] today if he is doing ok . WIll avoid giving iv ativan. increased the dose of suboxone to his home dose. d/w pscyhiatry the care plan
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
[2017-12-31 07:03] VITALS: BP 134/90
[2017-12-31 08:00] VITALS: BP 142/82
[2017-12-31 10:00] VITALS: BP 132/82
[2017-12-31] MEDS ORDERED: ATIVAN2 MG PO (10:26)
[2017-12-31 12:00] VITALS: BP 130/82
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
[2017-12-31 14:00] VITALS: BP 140/82
[2017-12-31 14:22] VITALS: BP 130/80
[2017-12-31] MEDS ORDERED: BACLOFEN10 M1 PO (16:44)
[2017-12-31] MEDS ORDERED: GABAPENTIN400 M2 PO (16:45)
== END 2017-12-31 16:10 | disposition other institution (70) | DRG 817 ==
LOC: ERH 10:46 → CRI 13:14 → ERHI 13:14 → ENRESERV 14:16 → ENTRNSPT 14:22 → EDTRNSPTSTS 14:28 → CMPTRNSPT 14:58 → CRI 15:09 → ENTRNSPT 12-26 13:41 → EDTRNSPTSTS 12-26 13:45 → 1NO 12-26 14:03 → CMPTRNSPT 12-26 14:06 → 1NO 12-27 08:32
PROVIDERS: Physician Assistant
DX: T40.2X2A Poisoning by other opioids, intentional self-harm, initial encounter (principal); Y92.002 Bathroom of unspecified non-institutional (private) residence as the place of occurrence of the external cause; R45.851 Suicidal ideations; B18.2 Chronic viral hepatitis C; Y90.8 Blood alcohol level of 240 mg/100 ml or more; Z91.5 Personal history of self-harm; T42.6X2A Poisoning by other antiepileptic and sedative-hypnotic drugs, intentional self-harm, initial encounter; T42.4X2A Poisoning by benzodiazepines, intentional self-harm, initial encounter; E87.6 Hypokalemia; F41.9 Anxiety disorder, unspecified; F90.9 Attention-deficit hyperactivity disorder, unspecified type; R06.89 Other abnormalities of breathing; F12.90 Cannabis use, unspecified, uncomplicated; R00.1 Bradycardia, unspecified; F17.210 Nicotine dependence, cigarettes, uncomplicated; Z59.0 Homelessness; F10.231 Alcohol dependence with withdrawal delirium; Z65.3 Problems related to other legal circumstances; T42.8X2A Poisoning by antiparkinsonism drugs and other central muscle-tone depressants, intentional self-harm, initial encounter; F32.2 Major depressive disorder, single episode, severe without psychotic features
CPT/HCPCS: 1NP; CCU; 80307; 81003; 82436; 93005; 93010; 96361; 96374; 99291; G0480; J1650; J2310; J2405; J3250; J3490; J7042

== ENCOUNTER 2017-12-31 12:20 | Inpatient (IN) | payer OTHER ==
[~2017-12-31] VITALS: Ht 180.3 cm; Wt 88.6 kg
[~2017-12-31 12:20] MED LIST: ATIVAN2 MG PO; BACLOFEN20 M1 PO; FOLIC ACID1 M1 PO; MULTIVITAMINS1 EAC9 PO; NEURONTIN800 M2 PO; OMEPRAZOLE40 M1 PO; PAROXETINE HCL30 M1 PO; SEROQUEL50 M1 PO; SUBOXONE 8 MG-1 EACH SL; THIAMINE HCL100 M1 PO; VYVANSE60 M1 PO
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
[2017-12-31 16:15] VITALS: BP 154/94
[2017-12-31 16:43] VITALS: BP 154/94
[2017-12-31] MEDS ORDERED: BACLOFEN10 M1 PO (16:44)
[2017-12-31] MEDS ORDERED: GABAPENTIN400 M2 PO (16:45)
[2017-12-31 16:47] VITALS: BP 154/94
[2017-12-31 19:44] VITALS: BP 174/91
[2017-12-31 20:40] VITALS: BP 174/91
[2018-01-01 07:35] VITALS: BP 149/85
[2018-01-01 07:55] VITALS: BP 149/85
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
[2018-01-01 12:14] VITALS: BP 151/95
--- NOTE | 2018-01-01 14:19 | PN- Att Addend ---
Attending Addendum Attending Brief Note Patient seen and examined, c/o back pain and sciatica. Patient was transferred from [facility] to [facility]. he was originally admitted to [facility] due to Polysubstance overdose. Vital Signs Date Time Temp Pulse Resp B/P B/P Pulse O2 O2 Flow FiO2 Mean Ox Delivery Rate 01/01 1214 96 151/95 01/01 0755 98.1 95 149/85 01/01 0735 98.1 95 149/85 12/31 2040 97.8 88 174/91 12/31 1944 97.8 88 174/91 12/31 1647 97.9 92 154/94 12/31 1643 97.9 92 154/94 12/31 1615 97.9 92 154/94 On exam; aox3, nad. cv; s1,s2, rrr resp; Clear abd; soft, nt, bs+ ext; no edema. no labs. A/P: 32 y/o M with pmh sig for anxiety, depression, suicidal ideation, IV drug abuse, untreated hepatitis C, alcohol abuse, opiate abuse on Suboxone admitted with intentional Polysubstance overdose. Now transfered to [facility] for further Mx. patient has been resumed on Subxone, gabapentin, baclofen. Pt asking about his Vyvanse. Resuming Vyvanse will be upto the psychiatrist. Pt also on Lorazepam for ETOH use. BP is high, Likely secondary to Withdrawl and pain. Will monitor for now. If continue to remain high then will start antihypertensive.
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
[2018-01-01 16:27] VITALS: BP 138/81
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
[2018-01-01 20:01] VITALS: BP 172/90
[2018-01-01 22:40] VITALS: BP 118/58
[2018-01-02 08:28] VITALS: BP 149/89
[2018-01-02 12:46] VITALS: BP 124/78
--- NOTE | 2018-01-02 15:13 | CP SOUTH PROGRESS NOTE PSYCH ---
Psych (Inpt) Progress Note Progress Note Vital Signs Date Time Temp Pulse B/P O2 01/02 1246 92 124/78 01/02 0828 97.1 94 149/89 01/01 2240 59 118/58 01/01 2001 97.9 92 172/90 Mental Status: Pt. is calm and cooperative, normal psychomotor activity, no abnormal behaviors, normal speech, bright affect, he reported feeling less depressed, denied thoughts of suicide, denied thoughts of homicide or violence, he denied hallucinations Denied feeling paranoid, there were no delusions during the interview, as coherent, there was no thought disorder. Alert and oriented to time, place, and person. No difficulties with information processing, No significant or cross deficits in short-term memory during the interview. Assessment: 32-year-old Single white male who was admitted following suspected intentional overdose after he was found unresponsive. Patient has extensive substance abuse history. The patient is also facing an incarceration. He seems to be doing very well, bright affect/animated Diagnosis(es): Unspecified depressive disorder Alcohol use disorder Opioid use disorder Other specified personality disorder Hepatitis C Treatment Plan: increase gabapentin at bedtime to 1200 mg at bedtime Increase daytime gabapentin to 900 mg AM and early afternoon Continue Zoloft 50 mg daily Continue folic acid and thiamine a nicotine patch Continue Suboxone Continue nicotine patch Continue gabapentin Continue nicotine patch
[2018-01-02 15:52] VITALS: BP 144/85
--- NOTE | 2018-01-02 16:02 | SOCIAL WORKER PROG NOTE PSYCH ---
Social Work Progress Note Progress Note Attempted to call Janna Trujillo's ex- to schedule a family meeting, but the number was not going through. Ronnie gave me a different number later and said the other numbers I was calling were old. The new number is [phone]. Ronnie was in groups today. Said he talked to his Dad and it went well. Father offered to have him live with him if needed. He signed a release for his Father to get information. He reported that his visit with his ex- and his daughter went well. He enjoyed spending time with them. Said he didn't have much time to discuss tx because his daughter was there, but hopes to talk about that tonight with his ex-. He is hoping he can go to rehab, but he needs to talk to his financial retirement plan specialist to see if he can do that. He is going to talk to him tomorrow. I emphasized that time is of the essence because he won't be here for a long time. Told him that we need to start determining an aftercare plan. Reports high anxiety with some panic symptoms ie: shortness of breath, tightness in chest. He said he is not sleeping that well and has lots of racing thoughts. We talked about ways he may need to get out some thoughts before bed. He is planning on writing. 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 Denies any suicidal thoughts and continues to report that he is happy to be alive.
[2018-01-02 19:48] VITALS: BP 146/91
[2018-01-03 08:16] VITALS: BP 142/96
[2018-01-03 12:19] VITALS: BP 148/75
--- NOTE | 2018-01-03 13:03 | CP SOUTH PROGRESS NOTE PSYCH ---
Psych (Inpt) Progress Note Progress Note Vital Signs Date Time Temp Pulse B/P 01/03 0816 97.3 92 142/96 01/02 194 97.7 89 146/91 Mental Status: calm, cooperative, normal psychomotor activity, no abnormal behaviors, normal speech, bright affect, less depressed, denied thoughts of suicide, denied thoughts of homicide or violence, he denied hallucinations, denied feeling paranoid, there were no delusions during the interview, as coherent, there was no thought disorder. Alert and oriented to time, place, and person. No difficulties with information processing, No significant or cross deficits in short-term memory during the interview. Assessment: 32-year-old Single White Male who was admitted following suspected intentional overdose after he was found unresponsive. Patient has extensive substance abuse history. The patient is also facing an incarceration. He seems to be doing very well, bright affect/animated Diagnosis(es): Unspecified depressive disorder Alcohol use disorder Opioid use disorder Other specified personality disorder Hepatitis C Treatment Plan: Reduce Ativan by 1 mg per day until done with increase gabapentin to 1200 mg TID Continue Zoloft 50 mg daily Continue Suboxone Continue nicotine patch
--- NOTE | 2018-01-03 13:56 | SOCIAL WORKER PROG NOTE PSYCH ---
Social Work Progress Note Progress Note Glenn seemed more energized this morning than usual. He was pulling himself up on the door jams and standing on the kitchen chair. I needed to redirect his behavior. When I saw him later in the afternoon he continued to have some restlessness and was perspiring. He stated he didn't sleep well last night and had alot of pent up energy. Feels restless. Talked about doing some excercise in the group room as a way to maybe let some energy out. He reported waking up with high anxiety after having dreamt of hurting himself last night. He said he has no intention of hurting himself and thinks he was just processing what happened. Reported that he tried calling his performance improvement director today, but only got a voicemail. Stated we could try him again together, so we called from the conference room. I left a detailed message with my call back information. I asked again if we should go ahead and put in a couple of referrals for rehab? He agreed to start the process and signed releases for [facility] and [facility]. I gave him the application to fill out for [facility]. He said that as of right now he may be staying at his ex-'s Father's house in [place] if he can't go to rehab from here. He also still needs to confirm with his performance improvement director that he would be able to do so. Family meeting with ex- is scheduled for Saturday at 11am.
--- NOTE | 2018-01-03 15:30 | SOCIAL WORKER PROG NOTE PSYCH ---
Social Work Progress Note Progress Note Determination Status: PENDED The services requested require additional review. You will be contacted regarding the status of this request if further information is needed. An authorization decision will be made within the required timeframes and details of that decision may be found under the member's authorization history. Member Name Member ID Member Subscriber Name Subscriber ID JAN MONTGOMERY [id number] JAN MONTGOMERY [id number] Pended Authorization # Client Authorization # Type of Request [id number] CONCURRENT Date of Admission/ Start of Services Requested From Submission Date 12/31/2017 01/03/2018 01/03/2018 Level of Service Type of Service Level of Care Type of Care INPATIENT/HLOC Mental Health Inpatient Inpatient [facility] - Inpatient Hospital Reason Code P76 Provider Name & Address Provider ID Provider Alternate ID NPI # for Authorization JULISSA NERI [id number] N/A [address] [facility] [id number] Message P76 Attached Documents There are no documents attached with this Authorization Request Document Title Document Description Authorization Printing & Downloading Options:
[2018-01-03 16:25] VITALS: BP 148/91
[2018-01-03 19:53] VITALS: BP 154/94
[2018-01-04 07:37] VITALS: BP 149/92
--- NOTE | 2018-01-04 10:49 | CP SOUTH PROGRESS NOTE PSYCH ---
Psych (Inpt) Progress Note Progress Note Pt notes that he has elevation in mood, increased goal directed activity, increase energy, and racing thoughts. He notes that this happens a few times a year and last for a few days to weeks. NOtes that he feels "out of control" during these times. Amenable to depakote starting nightly. Denies SI or HI. Notes very poor sleep with DFA and DSS, "I didn't sleep." Pt noted to be lurking outside a peers room. Redirected and supervised. Current Medications Sig/Braulio Start time Last Medication Dose Route Stop Time Status Admin Baclofen 20 MG TID 01/03 1400 AC 01/04 PO 0800 Buprenorphine/ 2 TAB 0800 01/01 0800 AC 01/04 Naloxone SL 0802 Buprenorphine/ 1 TAB 1500 12/31 1500 AC 01/03 Naloxone SL 1639 Divalproex Sodium 750 MG AT BEDTIME 01/04 2100 UNVr PO Folic Acid 1 MG DAILY 01/01 0900 AC 01/04 PO 0800 Gabapentin 1,200 MG TID 01/03 1400 AC 01/04 PO 0800 Lorazepam 1 MG FOUR TIMES A DAY 01/05 0800 AC PO Lorazepam 2 MG ONCE ONE 01/04 2100 DC PO 01/04 2101 Lorazepam 2 MG 2100 01/04 2100 AC PO 01/04 2101 Lorazepam 1 MG 0800,1300,1700 01/04 0800 AC 01/04 PO 01/04 2300 0802 Lorazepam 0.5 MG .STK-MED ONE 01/03 1936 DC PO 01/03 1937 Lorazepam 0.5 MG .STK-MED ONE 01/03 1613 DC PO 01/03 1614 Lorazepam 1.5 MG FOUR TIMES A DAY 01/03 1400 DC 01/03 PO 01/04 0700 2156 Lorazepam 0.5 MG .STK-MED ONE 01/03 1259 DC PO 01/03 1300 Multivitamins 1 TAB DAILY 01/01 0900 AC 01/04 PO 0801 Nicotine 2 MG .STK-MED ONE 01/03 1912 DC PO 01/03 1913 Nicotine 2 MG .STK-MED ONE 01/03 1639 DC PO 01/03 1640 Nicotine 14 MG DAILY 01/02 0900 AC 01/04 TOP 0801 Nicotine 2 MG Q2H PRN 12/31 2030 AC 01/04 PO 0655 Olanzapine 10 MG ONCE ONE 01/04 1045 UNVr PO 01/04 1046 Omeprazole 40 MG DAILY AC 01/01 07 AC 01/04 PO 0653 Sertraline HCl 50 MG DAILY 01/02 09 AC 01/04 PO 0801 Thiamine HCl 100 MG DAILY 01/01 0900 AC 01/04 PO 0801 Laboratory Tests 01/03 1600 Toxicology Urine Opiates Screen (>2000 NG/ML) < 100 Methadone Screen (>300 NG/ML) < 40 Barbiturate Screen (>200 NG/ML) < 60 Ur Phencyclidine Scrn (>25 NG/ML) < 6.00 Amphetamines Screen (>1000 NG/ML) < 100 U Benzodiazepines Scrn (>200 NG/ML) < 85 Urine Cocaine Screen (>300 NG/ML) < 50 Urine Cannabis Screen (>50 NG/ML) < 5.00 Urines Urine Color (YEL,AMB,STR) YEL Urine Clarity (CLEAR) CLEAR Urine pH (5.0 - 8.0) 6.5 Ur Specific Dalton (1.001 - 1.035) 1.025 Urine Protein (NEG,<30 MG/DL) NEG Urine Ketones (NEG) NEG Urine Nitrite (NEG) NEG Urine Bilirubin (NEG) NEG Urine Urobilinogen (0.1 - 1.0 EU/dl) 0.2 Ur Leukocyte Esterase (NEG) NEG Ur Microscopic EXAM NOT REQUIRED Urine Hemoglobin (NEG) NEG Urine Glucose (N MG/DL) NEG Vital Signs Date Time Temp Pulse Resp B/P B/P Pulse O2 O2 Flow FiO2 Mean Ox Delivery Rate 01/04 0737 97.4 84 149/92 01/03 1953 98.4 100 154/94 01/03 1625 73 148/91 01/03 1219 100 148/75 MSE Appearance: as stated age Speech : nl rate, rhythm, volume and prosody Behavior: cooperative Motor: ++ psychomotor agitation Mood : I have a lot of energy Affect : excited, labile, anxious, irritable, inappropriate Thought process: linear and goal directed Thought content : no delusions or paranoia Perceptions: denied AVHs, denied SI or HI Insight: poor Judgment: poor A/P: Pt with hx of mood disorder now with sx concerning for at the very least hypomania though, per patient report, more likely pato. Zyprexa 10mg now given agitation and behavioral distrubance Depakote 750mg ER nightly started Trazodone 50mg at bedtime started Encourage integration into the milieu
[2018-01-04 12:07] VITALS: BP 151/99
[2018-01-04 15:51] VITALS: BP 133/86
[2018-01-04 20:15] VITALS: BP 147/70
[2018-01-05 08:07] VITALS: BP 145/90
[2018-01-05 12:04] VITALS: BP 138/97
--- NOTE | 2018-01-05 12:21 | CP SOUTH PROGRESS NOTE PSYCH ---
See Addendum Psych (Inpt) Progress Note Progress Note Pt notes that he was sedated yesterday after zyprexa. He was visited by gamal but had to cut visit short due to sedation. It was explained that because of elevated mood and inappropriate behavior, given zyprexa. He admitted that behavior was agitated yesterday and laughed a little about some of the things he was doing. Noted that he would not have zyprexa today. He did take the depakote. No issues noted with it. Pt plans to continue this at bedtime. Denies SI or HI. Current Medications Sig/Braulio Start time Last Medication Dose Route Stop Time Status Admin Baclofen 20 MG TID 01/03 1400 AC 01/05 PO 0845 Buprenorphine/ 2 TAB 0800 01/01 0800 AC 01/05 Naloxone SL 0850 Buprenorphine/ 1 TAB 1500 12/31 1500 AC 01/04 Naloxone SL 1615 Divalproex Sodium 750 MG AT BEDTIME 01/04 2100 AC 01/04 PO 2134 Folic Acid 1 MG DAILY 01/01 09 AC 01/05 PO 0845 Gabapentin 1,200 MG TID 01/03 1400 AC 01/05 PO 0845 Lorazepam 1 MG FOUR TIMES A DAY 01/05 08 AC 01/05 PO 0849 Lorazepam 2 MG 2100 01/04 2159 DC 01/04 PO 01/04 2200 2136 Lorazepam 2 MG ONCE ONE 01/04 2100 DC PO 01/04 2101 Lorazepam 2 MG 2100 01/04 2100 DC PO 01/04 2101 Lorazepam 1 MG 0800,1300,1700 01/04 0800 DC 01/04 PO 01/04 2300 1744 Multivitamins 1 TAB DAILY 01/01 09 AC 01/05 PO 0845 Nicotine 14 MG DAILY 01/02 09 AC 01/05 TOP 0845 Nicotine 2 MG Q2H PRN 12/31 2030 AC 01/05 PO 1115 Omeprazole 40 MG DAILY AC 01/01 07 AC 01/05 PO 0844 Sertraline HCl 50 MG DAILY 01/02 0900 AC 01/05 PO 0850 Thiamine HCl 100 MG DAILY 01/01 09 AC 01/05 PO 0845 Trazodone HCl 50 MG AT BEDTIME 01/04 2100 AC 01/04 PO 2134 Laboratory Tests 01/03 1600 Toxicology Urine Opiates Screen (>2000 NG/ML) < 100 Methadone Screen (>300 NG/ML) < 40 Barbiturate Screen (>200 NG/ML) < 60 Ur Phencyclidine Scrn (>25 NG/ML) < 6.00 Amphetamines Screen (>1000 NG/ML) < 100 U Benzodiazepines Scrn (>200 NG/ML) < 85 Urine Cocaine Screen (>300 NG/ML) < 50 Urine Cannabis Screen (>50 NG/ML) < 5.00 Urines Urine Color (YEL,AMB,STR) YEL Urine Clarity (CLEAR) CLEAR Urine pH (5.0 - 8.0) 6.5 Ur Specific [place] (1.001 - 1.035) 1.025 Urine Protein (NEG,<30 MG/DL) NEG Urine Ketones (NEG) NEG Urine Nitrite (NEG) NEG Urine Bilirubin (NEG) NEG Urine Urobilinogen (0.1 - 1.0 EU/dl) 0.2 Ur Leukocyte Esterase (NEG) NEG Ur Microscopic EXAM NOT REQUIRED Urine Hemoglobin (NEG) NEG Urine Glucose (N MG/DL) NEG Vital Signs Date Time Temp Pulse Resp B/P B/P Pulse O2 O2 Flow FiO2 Mean Ox Delivery Rate 01/05 1204 72 138/97 01/05 0807 97.3 74 145/90 01/04 2015 98.0 92 147/70 01/04 1551 73 133/86 MSE Appearance: as stated age Speech : nl rate, rhythm, volume and prosody Behavior: cooperative Motor: ++ psychomotor agitation Mood : OK Affect : much less agitated, still labile, anxious, irritable, inappropriate Thought process: linear and goal directed Thought content : no delusions or paranoia Perceptions: denied AVHs, denied SI or HI Insight: poor Judgment: poor A/P: Pt with hx of mood disorder now with sx concerning for at the very least hypomania though, per patient report, more likely pato. Depakote 750mg ER nightly continue Otherwise continue current medication regimen If patient needs PRN will give zyprexa as was effective yesterday Encourage integration into the milieu
[2018-01-05 15:37] VITALS: BP 141/80
[2018-01-05 19:46] VITALS: BP 133/84
[2018-01-06 08:24] VITALS: BP 136/89
--- NOTE | 2018-01-06 08:27 | CP SOUTH PROGRESS NOTE PSYCH ---
Psych (Inpt) Progress Note Progress Note I reviewed the notes of Dr. Ballard from the weekend of January 04 and 2017. It appears that Dr. Ballard suspected hypomania (possible Bipolar II) TAHIR RN, Group and Activities Therapist, and Psychiatrist discussed pt.'s progress, treatment plan, and aftercare plans. Family meeting was held with Jenny Artis LCSW the social welfare clerk, the patient and the patient's ex-, the psychiatrist and can draw the physician sales office assistant student. Mental Status: Fidgety, increased psychomotor activity, no bizarre or abnormal behaviors. Talkative but not pressured, coherent, cooperative, normal psychomotor activity, no abnormal behaviors, bright affect, denied feeling depressed, denied thoughts of suicide, denied thoughts of homicide or violence, he denied hallucinations, denied feeling paranoid, there were no delusions during the interview, he was alert and oriented to time, place, and person. No difficulties with information processing Assessment: 32-year-old Single White Male who was admitted following suspected intentional overdose after he was found unresponsive. Patient has extensive substance abuse history. seems to be doing very well, bright affect/animated Diagnoses: Unspecified depressive disorder Alcohol use disorder Opioid use disorder Other specified personality disorder Hepatitis C Treatment Plan Update: D/C Ativan Klonopin 2 mg tonight, 1 mg tomorrow night then stop Continue gabapentin 1200 mg TID Continue Zoloft 50 mg daily Continue Suboxone Continue nicotine patch
[2018-01-06 11:58] VITALS: BP 132/68
--- NOTE | 2018-01-06 12:35 | SOCIAL WORKER PROG NOTE PSYCH ---
See Addendum Social Work Progress Note Progress Note Family meeting held with Glenn and his ex- Janna. Dr. Correa was also in attendance. Asked Ronnie about his weekend? He went on to say that staff found an old med in his room and assumed he was abusing it. He is in scrubs due to this event. Talked about trying to connect with his film historian to discuss discharge planning. We attempted to call again during our meeting, but were only able to leave a voicemail. Ronnie reports he wants to go to an inpatient 30 day program. I encouraged him to call [facility] today. He handed me the application for [facility] to be faxed. I told him that we are thinking of discharge for tomorrow. Asked where he would go if discharged tomorrow? Janna said he can stay with her or her Father. Visits have to be supervised between Ronnie and his daughter due to DCF involvement I found out today. I was going to tell Ronnie that DCF called today due to an open investigation and would like to speak to him, but Janna stated that she is handling the situation and doesn't want Ronnie involved. I reiterated that Ronnie can't stay with her if her daughter is there. She reported that her Father would be accepting of Ronnie staying with him in [place] and that he is in recovery and they get along well. Talked about doing IOP as an aftercare plan until rehab can possiblely be available. Reports no SI, no desire to use alcohol today. Faxed a referral to [facility]. Gave Ronnie phone numbers to call for rehabs and to schedule screenings.
[2018-01-06 15:40] VITALS: BP 147/86
[2018-01-06 20:06] VITALS: BP 149/84
[2018-01-07 08:01] VITALS: BP 129/69
--- NOTE | 2018-01-07 08:19 | CP SOUTH PROGRESS NOTE PSYCH ---
Psych (Inpt) Progress Note Progress Note TAHIR, RN, Group and Activities Therapist, and Psychiatrist discussed pt.'s progress, treatment plan, and aftercare plans. Vital Signs Date Time Temp Pulse B/P 01/07 0801 97.1 73 129/69 01/06 2006 98.6 76 149/84 Mental Status: The pt. was alert, oriented, and in good spirits. He was not as fidgety today, slightly increased psychomotor activity (he attributed that to ADHD). There were no bizarre or abnormal behaviors. He was talkative but not pressured, he was coherent, cooperative, no abnormal behaviors, bright affect, denied feeling depressed today, denied thoughts of suicide, denied thoughts of homicide or violence. pt. denied hallucinations, denied feeling paranoid, there were no delusions during the interview Assessment: A 32-year-old White Male who was admitted following an overdose after he was found unresponsive. Patient has extensive substance abuse history. He was first in ICU then Medical Floor then was transferred to Psych after medical stability. He seems to be doing very well, bright affect/animated, no thoughts of suicide since arrival on the unit Diagnoses: Unspecified depressive disorder Alcohol use disorder Opioid use disorder Other specified personality disorder Hepatitis C Treatment Plan Update: D/c Home IOP Dual then Rehab
[2018-01-07] MEDS ORDERED: BUPRENORPHN-NA1 EACH SL (08:58)
[2018-01-07] MEDS ORDERED: SERTRALINE HCL50 MG PO (08:58)
[2018-01-07] MEDS ORDERED: OMEPRAZOLE40 M1 PO (08:58)
[2018-01-07] MEDS ORDERED: BACLOFEN20 M1 PO (08:58)
[2018-01-07] MEDS ORDERED: DEPAKOTE ER250 M1 PO (08:58)
[2018-01-07] MEDS ORDERED: BUPRENORPHIN-N1 EACH SL (08:58)
--- NOTE | 2018-01-07 08:59 | Patient Discharge Instructions ---
Psych Discharge Inst General Discharge Information Reason for Admission: suicide sttempt Psy Discharge Primary Diag+ Unspecified Depressive DO Psy Discharge Secondary Diag+ Opioid Use Disorder Alcohol Use Disorder Summary Tests/Major Procedures Lab ALT 43 U/L 12/25/17 1140 AST 32 U/L 12/25/17 1140 Alkaline Phosphatase 65 U/L 12/25/17 1140 Creatine Kinase 84 U/L 12/25/17 1140 Total Bilirubin 0.3 mg/dL 12/25/17 1140 Studies Pending at DC: None Patient Instructions Contact Information Your Psychiatrist on [facility] was Denys Correa MD * If you are experiencing an emergency related to this hospitalization, please call [phone] to contact the treating psychiatrist or the psychiatrist-on- call. * To Request a copy of your medical records, please contact the Medical Records Department at [phone]. * To request results of studies pending at the time of discharge, please call [phone]. * Continue your Medications until directed to stop by your Healthcare provider. General Medication Information Please continue to take your new medications and your continued home medications , unless otherwise indicated on your discharge medication list, or unless directed by your MD or PETROLEUM REFINING EQUIPMENT OPERATOR to stop them. Special Instructions Diet Regular Activity Normal - Tobacco Use Treatment Offered Post DC Medications Offered: Script Given-See Med List Post DC Tobacco Treatment Plan: Refused Tobacco Tx Pgm - EtOH/Drug Use D/O Treatment Offered Post DC Medications Offered: Script Given-See Med List Post DC EtOH/SubAbuse [place] Plan: [facility] SubAbuse/Dual IOP Metabolic Screening Not Applicable, patient not on a neuroleptic. Advance Directives Does the Patient have Medical Advance Directives No/Refused further info Does Pt have Psychiatric Advance Directives? No/Refused further info Does Patient have a Designated Surrogate Decision Maker: No Information About Psychiatric Advance Directives Provided? Refused Discharge Plan Post Hospital Treatment Plan: Dual IOP then Rehab
[2018-01-07] MEDS ORDERED: NICOTINE PATCH1 EAC2 TOP (09:01)
[2018-01-07] MEDS ORDERED: GABAPENTIN600 M1 PO (09:01)
[2018-01-07] MEDS ORDERED: VISTARIL50 M1 PO (09:04)
[2018-01-07] MEDS ORDERED: TRAZODONE HCL50 M1 PO (09:04)
--- NOTE | 2018-01-07 10:17 | SOCIAL WORKER PROG NOTE PSYCH ---
Social Work Progress Note Progress Note Dr. Correa and I met with Ronnie together this morning. Ronnie seems prepared to leave today. Reports feeling safe to leave the hospital. Planning on staying with his ex- on a temporary basis. Hoping to get into [facility] soon. Wants to go to [facility] in the meantime. Emphasized that benzos or cannabis use are not permitted in the program. He seemed okay with that. Talked about getting connected to [facility] for primary care in this area. I told him I would schedule him an appt. He eventually would like his Suboxone prescriber switched from Faiza Espino to someone in this area. I told him that [facility] does it and Dr. Carey in [facility] is another option. He said he is considering [facility] as well. Ronnie was talkative, forward thinking. Scheduled an IOP intake for 1:15pm today. Called [facility] to schedule an appt. with primary care, but the [place] office was booked until March. Got him an appt. in the [place] office with Fatoumata Contreras APRN on 01/20 10am.
--- NOTE | 2018-01-07 12:20 | DISCHARGE SUMMARY REPORT-PSYCH ---
Visit Information Visit Dates/Diagnosis' Admission Date: 12/31/17 Discharge Date: 01/07/18 Reason for Admission: suicide sttempt Psy Discharge Primary Diag: Unspecified Depressive DO Psy Discharge Secondary Diag: Opioid Use Disorder Alcohol Use Disorder Hospital Course Significant Lab Findings: There were no significant lab abnormalities. Course Complications: Patient did not have any complications while he was on the inpatient psychiatric unit. Consultations: There were no need for consultations on the patient was on the inpatient psychiatric unit as he came down from the medical floor. Allergies: Coded Allergies: NO KNOWN ALLERGIES (08/03/12) Hospital Course/TX Response: 01/01/2018: 32-year-old single white male who was admitted following suspected intentional overdose after he was found unresponsive. Patient has extensive substance abuse history. The patient is also facing an incarceration. Diagnosis(es): Unspecified depressive disorder Alcohol use disorder Opioid use disorder Other specified personality disorder Hepatitis C Treatment Plan: Inpatient psychiatric care with safety checks every 15 minutes Nursing assessments, vital signs, and patient education Biopsychosocial assessment, collateral information, aftercare planning by social work Group therapy, milieu therapy, and activities therapy. Continue Zoloft 100 mg daily Continue folic acid and thiamine a nicotine patch Continue Suboxone Continue gabapentin Continue nicotine patch 01/02/2018: increase gabapentin at bedtime to 1200 mg at bedtime Increase daytime gabapentin to 900 mg AM and early afternoon Continue all other medications unchanged 01/03/2018: Reduce Ativan by 1 mg per day until done with increase gabapentin to 1200 mg TID Continue all other medications unchanged 01/04/2018: Patient was seen by Dr. Ballard. A/P: Pt with hx of mood disorder now with sx concerning for at the very least hypomania though, per patient report, more likely pato. Zyprexa 10mg now given agitation and behavioral distrubance Depakote 750mg ER nightly started Trazodone 50mg at bedtime started 01/05/2018: Patient was seen by Dr. Ballard. Same medications continued 01/06/2018: D/C Ativan Klonopin 2 mg tonight, 1 mg tomorrow night then stop 01/07/2018: Mental Status: The pt. was alert, oriented, and in good spirits. He was not as fidgety today, slightly increased psychomotor activity (he attributed that to ADHD). There were no bizarre or abnormal behaviors. He was talkative but not pressured, he was coherent, cooperative, no abnormal behaviors, bright affect, denied feeling depressed today, denied thoughts of suicide, denied thoughts of homicide or violence. pt. denied hallucinations, denied feeling paranoid, there were no delusions during the interview Assessment: A 32-year-old White Male who was admitted following an overdose after he was found unresponsive. Patient has extensive substance abuse history. He was first in ICU then Medical Floor then was transferred to [facility] after medical stability. He seems to be doing very well, bright affect/animated, no thoughts of suicide since arrival on the unit Diagnoses: Unspecified depressive disorder Alcohol use disorder Opioid use disorder Other specified personality disorder Hepatitis C Treatment Plan Update: D/C Home IOP Dual then Rehab Discharge HBIPS - Tobacco Use Treatment Offered Post DC Medications Offered: Script Given-See Med List Post DC Tobacco Treatment Plan: Refused Tobacco Tx Pgm - EtOH/Drug Use D/O Treatment Offered Post DC Medications Offered: Script Given-See Med List Post DC EtOH/SubAbuse TX Plan: [facility] SubAbuse/Dual IOP Metabolic Screening - Screen if on a Neuroleptic Medication - Metabolic screening should include: - Blood Pressure, BMI, Glucose or Hgb A1c, & a - Lipid profile from within the past 365 days. Metabolic Screening Not Applicable, patient not on a neuroleptic. Discharge Instructions General Discharge Information Multiple Neuroleptics: Not Applicable Discharge Diet Regular Discharge Activity Normal DC Disposition: Home then Rehab as soon bed available Referrals Ordered Referrals INTENSIVE OUTPT PSY-SUBSTANCE 01/07/18 [address] [id number] [facility] Intensive Outpatient Program for mental health and substance use Intake 01/07/18 1:15pm [address] [id number] Provider Referral 01/20/18 For Groups: [facility] Multiple Locations [facility] [place] Location appt. with Fatoumata Contreras APRN 01/20/18 10:00am [address] [place], [place] [phone] Bring insurance card and ID Provider Referral For Groups: [[facility]] Patient will follow up with [facility]hab regarding bed availability [phone] Provider Referral 01/08/18 For Groups: Outpatient Psychiatry [facility] Smoking Cessation Group 01/08/18 4pm [address], [place] Prescriptions Stop taking the following medications: Buprenorphine HCl/Naloxone HCl (Suboxone 8 MG-2 MG Sl Film) 8 MG-2 MG FILM SUBLINGUAL DAILY Qty = 21 Lisdexamfetamine Dimesylate (Vyvanse) 60 MG CAPSULE ORAL Every Morning Qty = 14 Paroxetine HCl (Paroxetine HCl) 30 MG TABLET ORAL DAILY Qty = 30 Gabapentin (Neurontin) 800 MG TABLET ORAL EVERY SIX HOURS Quetiapine Fumarate (Seroquel) 50 MG TABLET ORAL Every night Multiple Vitamin (Multivitamins) 1 EACH TABLET ORAL DAILY Qty = 30 Thiamine HCl (Thiamine HCl) 100 MG TABLET ORAL DAILY Qty = 30 Folic Acid (Folic Acid) 1 MG TABLET ORAL DAILY Qty = 30 Lorazepam (Ativan) 2 MG TABLET ORAL See Instructions Qty = 10 Continue taking these medications: Baclofen (Baclofen) 20 MG TABLET 1 Tablet ORAL TWICE DAILY Qty = 28 Comments: Last Taken:01/07/18 Time:8AM This prescription has been renewed Omeprazole (Omeprazole) 40 MG CAPSULE.DR 1 Capsule ORAL DAILY Qty = 14 Comments: Last Taken:01/07/18 Time:7AM This prescription has been renewed Start taking the following new medications: Buprenorphine HCl/Naloxone HCl (Buprenorphin-Naloxon 8-2 MG Sl) 8 MG-2 MG TAB.SUBL 2 Tablet SUBLINGUAL DAILY @8 AM Qty = 28 No Refills Comments: Last Taken:01/07/18 Time:8AM Buprenorphine HCl/Naloxone HCl (Buprenorphn-Naloxn 2-0.5 MG Sl) 2 MG-0.5 MG TAB.SUBL 2 Tablet SUBLINGUAL 5 PM Qty = 28 No Refills Comments: Last Taken:TO START THIS DOSE TODAY AT 5PM Time: Divalproex Sodium (Depakote ER) 250 MG TAB.ER.24H 750 Milligram ORAL AT BEDTIME Qty = 42 No Refills Comments: Last Taken:01/06/18 Time:9:30PM Sertraline HCl (Sertraline HCl) 50 MG TABLET 50 Milligram ORAL DAILY Qty = 14 No Refills Comments: Last Taken:01/07/18 Time:8AM Nicotine (Nicotine Patch) 14 MG/24 HOUR PATCH.TD24 14 Milligram On the skin DAILY Qty = 14 No Refills Comments: Last Taken:01/07/18 Time:8AM Trazodone HCl (Trazodone HCl) 50 MG TABLET 50 Milligram ORAL AT BEDTIME Qty = 15 No Refills Comments: Last Taken:01/06/18 Time:9:30PM Gabapentin (Gabapentin) 600 MG TABLET 2 Tablet ORAL THREE TIMES DAILY Qty = 90 No Refills Comments: Last Taken:01/07/18 Time:8AM Hydroxyzine Pamoate (Vistaril) 50 MG CAPSULE 1 Capsule ORAL EVERY 6 HOURS NEEDED as needed for anxiety (max twice a day) Qty = 30 No Refills Comments: Last Taken:TO START UPON DISCHARGE Time: Studies Pending at Discharge None Copies To: Lala Cabrera APRN
--- NOTE | 2018-01-07 14:03 | RADIOLOGY REPORT ---
EXAMINATION: XR CHEST CLINICAL INFORMATION: Screening. COMPARISON: No relevant prior imaging. TECHNIQUE: 2 views of the chest were obtained. FINDINGS: Lungs are clear and well expanded. No focal consolidative disease, pleural effusion, or pneumothorax. The cardiac silhouette and upper mediastinal contours are normal. No acute osseous finding. IMPRESSION: Normal chest radiograph.
--- NOTE | 2018-01-07 15:45 | SOCIAL WORKER PROG NOTE PSYCH ---
Social Work Progress Note Faxed Referral(s) Referred To: [facility] Transition of Care Documents sent: Health Summary Faxed to: [facility] Fax #: [phone] Faxed by: Jenny Artis Date faxed: 01/07/18 Time Faxed: [phone]
== END 2018-01-07 13:19 | DRG 754 ==
LOC: CP SOUTH 12:20 → ENRESERV 14:33 → CP SOUTH 16:20
DX: F32.9 Major depressive disorder, single episode, unspecified (principal); F11.90 Opioid use, unspecified, uncomplicated; F10.10 Alcohol abuse, uncomplicated
CPT/HCPCS: 71046; 80307; 81003; 90834; J0515; J1630; J3490